=== PATIENT | female | born 1960 | race Caucasian/White ===

== ENCOUNTER 2016-08-08 17:50 | Emergency (ER) | payer OTHER ==
[2016-08-08] MEDS ORDERED: SODIUM CHLORIDE 0.9% 1,000 ML IV STA ×2 (19:46→20:15)
--- NOTE | 2016-08-08 19:54 | ED ---
Weakness HPI - General Chief complaint: Weakness Stated complaint: weakness Time Seen by Provider: 08/08/16 19:41 Source: patient, RN notes reviewed Mode of arrival: EMS Limitations: no limitations - History of Present Illness Initial comments: 55-year-old female presents to the emergency department with a chief complaint of weakness. Patient states about 2 weeks ago she tripped and fell and hit her head. Patient states that the bruising to that area. Patient states that she' s had her head she has felt lightheaded when she stands up. Patient states she' s felt weak. Patient states she is unable to walk due to this increased weakness. Patient has a history of liver failure. Patient states she is just feeling worse she is feeling. Patient denies any fever chills. Patient states she does not know what caused her to fall this was 2 weeks ago. Patient states due to their increased weakness and unable to even ambulate about how she thought that she should be evaluated. Patient states that she is not currently having any other symptoms at this time. Patient denies any recent fever, chills , shortness of breath, chest pain, back pain, abdominal pain, nausea vomiting, numbness or tingling, dysuria or hematuria, constipation or diarrhea, headaches or visual changes, or any other current symptoms. - Related Data Home Medications Medication Instructions Recorded Confirmed Folic Acid 1 mg PO DAILY 08/06/14 08/08/16 Thiamine HCl [Vitamin B-1] 100 mg PO DAILY 08/06/14 08/08/16 Potassium Chloride [Klor-Con 10] 10 meq PO DAILY 07/03/15 08/08/16 Cholecalciferol [Vitamin D3] 4,000 unit PO DAILY 08/08/16 08/08/16 Citalopram Hydrobromide [CeleXA] 40 mg PO DAILY 08/08/16 08/08/16 Furosemide [Lasix] 40 mg PO BID 08/08/16 08/08/16 Lactulose [Cephulac] 20 gm PO TID 08/08/16 08/08/16 Spironolactone [Aldactone] 25 mg PO BID 08/08/16 08/08/16 Previous Rx's Medication Instructions Recorded Levothyroxine Sodium [Synthroid] 88 mcg PO DAILY #30 tab 07/06/15 Allergies Allergy/AdvReac Type Severity Reaction Status Date / Time bupropion HCl Allergy Unknown Verified 08/08/16 18:11 [From Wellbutrin] fluoxetine HCl [From Prozac] Allergy Unknown Verified 08/08/16 18:11 Latex, Natural Rubber Allergy Unknown Verified 08/08/16 18:11 Review of Systems ROS Statement: Those systems with pertinent positive or pertinent negative responses have been documented in the HPI. ROS Other: All systems not noted in ROS Statement are negative. Past Medical History Past Medical History: Heart Failure, Liver Disease, Renal Disease, Thyroid Disorder Additional Past Medical History / Comment(s): alcoholism, liver and kidney failure History of Any Multi-Drug Resistant Organisms: None Reported Past Surgical History: Bladder Surgery, Breast Surgery, Hysterectomy Additional Past Surgical History / Comment(s): lumpectomy, parencetesis January 02 2013 Past Anesthesia/Blood Transfusion Reactions: No Reported Reaction Additional Past Anesthesia/Blood Transfusion Reaction / Comment(s): never had a blood transfusion Past Psychological History: Anxiety, Depression, Panic Disorder Smoking Status: Current every day smoker Past Alcohol Use History: Abuse, Occasional Past Drug Use History: None Reported, Marijuana - Past Family History Mother Family Medical History: COPD Additional Family Medical History / Comment(s): smoker Father Additional Family Medical History / Comment(s): alcoholism General Exam - General Exam Comments Initial Comments: General: The patient is awake and alert, in no distress, and does not appear acutely ill. Jaundice Head: Patient does appear to have a hematoma to the right side of the head that is hardened. Patient has ecchymosis noted around the right eye. Eye: Pupils are equal, round and reactive to light, extra-ocular movements are intact; there is normal conjunctiva bilaterally. Icterus Ears, nose, mouth and throat: There are moist mucous membranes and no oral lesions. Neck: The neck is supple, there is no tenderness. Cardiovascular: There is a regular rate and rhythm. No murmur, rub or gallop is appreciated. Respiratory: Lungs are clear to auscultation, respirations are non-labored, breath sounds are equal. No wheezes, stridor, rales, or rhonchi. Gastrointestinal: Soft, distended, non-tender abdomen without masses or organomegaly noted. There is no rebound or guarding present. No CVA tenderness. Bowel sounds are unremarkable. Back: There is no tenderness to palpation in the midline. There is no obvious deformity. No rashes noted. Musculoskeletal: Normal ROM, no tenderness, There is no pedal edema. There is no calf tenderness or swelling. Sensation intact. Pulses equal bilaterally 2+. Neurological: CN II-XII intact, There are no obvious motor or sensory deficits. Coordination appears grossly intact. Speech is normal. Skin: Skin is warm and dry and no rashes or lesions are noted. Psychiatric: Cooperative, appropriate mood & affect, normal judgment. Limitations: no limitations Course Vital Signs 08/08/16 08/08/16 18:07 19:11 Temperature 97.7 F 101.1 F H Pulse Rate 107 H 90 Respiratory 16 Rate Blood Pressure 120/57 O2 Sat by Pulse 97 Oximetry - Reevaluation(s) Reevaluation #1: 08/08/16 21:17 We are pending results of the patient's urinalysis. Reevaluation #2: 08/08/16 21:20 Gary pending lab work at the transfer time. EKG Findings - EKG Comments: EKG Findings:: normal sinus rhythm 97 bpm, normal axis, no atopy, no S-T depressions or elevations, prolonged QT Medical Decision Making - Medical Decision Making 55-year-old female presents to the emergency department with a chief complaint of weakness. Patient imaging and lab work is reviewed at this time. We are still pending a urine. At this time patient's CAT scan was reviewed that does show concern for a acute traumatic parenchymal hemorrhage the patient was interested about her history of falls. She states last time she fell was one week ago and the bruising and hematoma we noticed today was from 2 weeks ago. The patient is neurologically intact on exam. Alert and oriented 3. Patient has a history of liver failure. Her INR is 1.7 which is appears stable compared to previous labs. To elevated with blood cell count today as well as a fever there is concern for for source at this time we are still pending a urine but we did treat the patient with a gram of Rocephin here in the emergency room prior to transfer. Patient also did receive a fluid bolus and doesn't have an elevation in her kidney function compared to previous lab work otherwise laboratory does appear to be stable compared to previous. At this time we did contact intact; Dr. Don regarding the case and he does accept the transfer. - Lab Data Result diagrams: 08/08/16 20:05 08/08/16 20:05 Lab Results 08/08/16 08/08/16 08/08/16 Range/Units 20:05 20:05 20:05 WBC 12.4 H (3.8-10.6) k/uL RBC 2.64 L (3.80-5.40) m/uL Hgb 8.0 L (11.4-16.0) gm/dL Hct 24.0 L (34.0-46.0) % MCV 90.7 (80.0-100.0) fL MCH 30.3 (25.0-35.0) pg MCHC 33.4 (31.0-37.0) g/dL RDW 19.9 H (11.5-15.5) % Plt Count 119 L (150-450) k/uL Neutrophils % 87 % Lymphocytes % 4 % Monocytes % 7 % Eosinophils % 0 % Basophils % 0 % Neutrophils # 10.8 H (1.3-7.7) k/uL Lymphocytes # 0.5 L (1.0-4.8) k/uL Monocytes # 0.8 (0-1.0) k/uL Eosinophils # 0.0 (0-0.7) k/uL Basophils # 0.0 (0-0.2) k/uL Anisocytosis Slight PT (9.0-12.0) sec INR (<1.1) APTT (22.0-30.0) sec Sodium 125 L (137-145) mmol/L Potassium 3.9 (3.5-5.1) mmol/L Chloride 88 L (98-107) mmol/L Carbon Dioxide 27 (22-30) mmol/L Anion Gap 10 mmol/L BUN 21 H (7-17) mg/dL Creatinine 1.37 H (0.52-1.04) mg/dL Est GFR (MDRD) Af Amer 49 (>60 ml/min/1.73 sqM) Est GFR (MDRD) Non-Af 40 (>60 ml/min/1.73 sqM) Glucose 116 H (74-99) mg/dL Plasma Lactic Acid Bassam (0.7-2.0) mmol/L Calcium 8.9 (8.4-10.2) mg/dL Phosphorus 2.5 (2.5-4.5) mg/dL Magnesium 1.4 L (1.6-2.3) mg/dL Total Bilirubin 5.3 H (0.2-1.3) mg/dL AST 61 H (14-36) U/L ALT 39 (9-52) U/L Alkaline Phosphatase 208 H (38-126) U/L Ammonia (<30) umol/L Total Creatine Kinase 48 (30-135) U/L CK-MB (CK-2) 0.4 (0.0-2.4) ng/mL CK-MB (CK-2) Rel Index 0.8 Troponin I <0.012 (0.000-0.034) ng/mL Total Protein 7.1 (6.3-8.2) g/dL Albumin 3.1 L (3.5-5.0) g/dL Influenza Type A RNA (Not Detectd) Influenza Type B (PCR) (Not Detectd) 08/08/16 08/08/16 08/08/16 Range/Units 20:05 20:05 20:33 WBC (3.8-10.6) k/uL RBC (3.80-5.40) m/uL Hgb (11.4-16.0) gm/dL Hct (34.0-46.0) % MCV (80.0-100.0) fL MCH (25.0-35.0) pg MCHC (31.0-37.0) g/dL RDW (11.5-15.5) % Plt Count (150-450) k/uL Neutrophils % % Lymphocytes % % Monocytes % % Eosinophils % % Basophils % % Neutrophils # (1.3-7.7) k/uL Lymphocytes # (1.0-4.8) k/uL Monocytes # (0-1.0) k/uL Eosinophils # (0-0.7) k/uL Basophils # (0-0.2) k/uL Anisocytosis PT 16.2 H (9.0-12.0) sec INR 1.7 (<1.1) APTT 29.1 (22.0-30.0) sec Sodium (137-145) mmol/L Potassium (3.5-5.1) mmol/L Chloride (98-107) mmol/L Carbon Dioxide (22-30) mmol/L Anion Gap mmol/L BUN (7-17) mg/dL Creatinine (0.52-1.04) mg/dL Est GFR (MDRD) Af Amer (>60 ml/min/1.73 sqM) Est GFR (MDRD) Non-Af (>60 ml/min/1.73 sqM) Glucose (74-99) mg/dL Plasma Lactic Acid Bassam 1.5 (0.7-2.0) mmol/L Calcium (8.4-10.2) mg/dL Phosphorus (2.5-4.5) mg/dL Magnesium (1.6-2.3) mg/dL Total Bilirubin (0.2-1.3) mg/dL AST (14-36) U/L ALT (9-52) U/L Alkaline Phosphatase (38-126) U/L Ammonia 18 (<30) umol/L Total Creatine Kinase (30-135) U/L CK-MB (CK-2) (0.0-2.4) ng/mL CK-MB (CK-2) Rel Index Troponin I (0.000-0.034) ng/mL Total Protein (6.3-8.2) g/dL Albumin (3.5-5.0) g/dL Influenza Type A RNA Not Detected (Not Detectd) Influenza Type B (PCR) Not Detected (Not Detectd) Disposition Clinical Impression: Fall, Ecchymosis of right eye, Forehead contusion, Parenchymal hemorrhage, Acute kidney injury, Fever, Elevated INR, Liver failure, Jaundice, Chronic anemia Disposition: OTHER INSTITUTION NOT DEFINED Time of Disposition: 21:17 - Out of Hospital Transfer - Req. Specs Out of Hospital Transfer - Requested Specifics: Other Emergency Center ([facility])
[2016-08-08 20:18] LABS: Anisocytosis Slight; Basophils % (A) 0 %; CH 30.1; CHCM 33.4; Eosinophils % (A) 0 %; HDW 2.47; Luc # (Auto) 0.26; Luc % (Auto) 2; Lymphocytes # (A) 0.5 k/uL (1.0-4.8); Lymphocytes % (A) 4 %; MCH 30.3 pg (25.0-35.0); MCHC 33.4 g/dL (31.0-37.0); MCV 90.7 fL (80.0-100.0); Mean Platelet Volume 8.5; Monocytes # (A) 0.8 k/uL (0-1.0); Monocytes % (A) 7 %; Neutrophils # (A) 10.8 k/uL (1.3-7.7); Neutrophils % (A) 87 %; RBC 2.64 m/uL (3.80-5.40); RDW 19.9 % (11.5-15.5); WBC 12.4 k/uL (3.8-10.6); WBC (Perox) 11.83
[2016-08-08 20:24] LABS: INR 1.7 (<1.1); Partial Thromboplastin Time 29.1 sec (22.0-30.0); Prothrombin Time 16.2 sec (9.0-12.0)
[2016-08-08 20:28] LABS: Calcium 8.9 mg/dL (8.4-10.2); Magnesium 1.4 mg/dL (1.6-2.3); Phosphorous 2.5 mg/dL (2.5-4.5); Potassium 3.9 mmol/L (3.5-5.1); Total Bilirubin 5.3 mg/dL (0.2-1.3); Total Protein 7.1 g/dL (6.3-8.2)
[2016-08-08 20:30] LABS: Creatine Kinase 48 U/L (30-135)
[2016-08-08] MEDS ORDERED: SODIUM CHLORIDE 0.9% 500 ML IV SCH (20:30)
--- NOTE | 2016-08-08 20:41 | CT ---
EXAMINATION TYPE: CT brain wo con DATE OF EXAM: 08/08/2016 8:28 PM COMPARISON: 01/02/2016 HISTORY: Weakness. Bruising involving the left orbital area. CT DLP: 956.1 mGycm Automated exposure control for dose reduction was used. FINDINGS: There is cerebral cortical atrophy. There is a 2 cm area of slight increased attenuation in the right temporal lobe with some adjacent cortical hypodensity. There is no midline shift. The calvarium is i ntact. There is a 1 cm sebaceous cyst over the right frontal bone. IMPRESSION: There is combined increased and decreased attenuation in the right temporal lobe that is new compared to old CT scan and could relate to a hemorrhagic acute infarct. No fracture seen. I would also consi marilyn acute traumatic parenchymal hemorrhage. No mass effect.
--- NOTE | 2016-08-08 20:43 | XR ---
EXAMINATION TYPE: XR chest 2V DATE OF EXAM: 08/08/2016 8:31 PM COMPARISON: 01/02/2016 HISTORY: Weakness TECHNIQUE: Frontal and lateral views of the chest are obtained. FINDINGS: Heart and mediastinum are normal. Lungs are clear. Diaphragm is normal. Bony thorax is int act. IMPRESSION: Normal chest. No change.
[2016-08-08 20:44] LABS: Creatine Kinase MB 0.4 ng/mL (0.0-2.4); Troponin I <0.012 ng/mL (0.000-0.034)
[2016-08-08 21:15] VITALS: RESP 20
[2016-08-08] MEDS ORDERED: ACETAMINOPHEN TAB 500 MG TAB PO STA (21:25)
[2016-08-08 21:41] LABS: Appearance,Urine Cloudy (Clear); Bacteria,Urine Many /hpf; Bilirubin,Urine 1+ (Negative); Glucose,Urine (UA) Negative (Negative); Ketones,Urine Negative (Negative); Leukocyte Esterase,Urine Large (Negative); Mucus,Urine Rare /hpf; Nitrite,Urine Negative (Negative); PH, Urine 5.5 (5.0-8.0); Particle Count 25034; Protein,Urine 1+ (Negative); RBC,Urine 6 /hpf (0-5); Squamous Epithelial Cell,Urine 4 /hpf (0-4); UA Billing (MACRO vs. MICRO) MICRO; WBC,Urine 140 /hpf (0-5)
[2016-08-08 21:44] VITALS: BP 98/50; PULSE 81; TEMP 100
== END 2016-08-08 21:50 | disposition other institution (70) ==
LOC: EC 17:50
DX: S06.360A Traumatic hemorrhage of cerebrum, unspecified, without loss of consciousness, initial encounter (principal); S05.11XA Contusion of eyeball and orbital tissues, right eye, initial encounter; S00.83XA Contusion of other part of head, initial encounter; W01.10XS Fall on same level from slipping, tripping and stumbling with subsequent striking against unspecified object, sequela; N17.9 Acute kidney failure, unspecified; R50.9 Fever, unspecified; D64.9 Anemia, unspecified; K72.90 Hepatic failure, unspecified without coma; Z79.899 Other long term (current) drug therapy; Z88.8 Allergy status to other drugs, medicaments and biological substances; Z91.040 Latex allergy status; E07.9 Disorder of thyroid, unspecified; F32.9 Major depressive disorder, single episode, unspecified; I50.9 Heart failure, unspecified; F17.210 Nicotine dependence, cigarettes, uncomplicated
CPT/HCPCS: 99284; 96365; 96361; 36415; 93005; 80053; 82533; 82140; 82550; 82553; 83605; 83735; 84100; 84484; 85025; 85610; 85730; 81001; 87040; 87086; 87077; 87186; 87502; 71020; 70450; J0696

== ENCOUNTER 2016-11-01 10:00 | Inpatient (IN) | payer OTHER ==
--- NOTE | 2016-11-01 10:35 | ED ---
General Adult HPI - General Chief complaint: Weakness Stated complaint: Weakness Time Seen by Provider: 11/01/16 10:05 Source: patient, EMS, RN notes reviewed Mode of arrival: EMS Limitations: no limitations - History of Present Illness Initial comments: This is a 56-year-old female who presents to the emergency department with a past medical history significant for alcoholism and she continues to drink, liver failure, and renal failure. Patient states she has been drinking a lot more heavily ever since her mother in June. Patient states she has been becoming weaker and weaker to the point where she cannot get out of bed so she called the ambulance today. Patient denies any fever or chills. Patient denies any headache patient denies numbness weakness. Patient denies any difficulty breathing. Patient denies abdominal pain. Patient states she's had no chest pain palpitations or difficulty breathing. - Related Data Home Medications Medication Instructions Recorded Confirmed Folic Acid 1 mg PO DAILY 08/06/14 11/01/16 Thiamine HCl [Vitamin B-1] 100 mg PO DAILY 08/06/14 11/01/16 Potassium Chloride [Klor-Con 10] 10 meq PO DAILY 07/03/15 11/01/16 Cholecalciferol [Vitamin D3] 4,000 unit PO DAILY 08/08/16 11/01/16 Citalopram Hydrobromide [CeleXA] 40 mg PO DAILY 08/08/16 11/01/16 Furosemide [Lasix] 40 mg PO BID 08/08/16 11/01/16 Lactulose [Cephulac] 20 gm PO TID 08/08/16 11/01/16 Spironolactone [Aldactone] 25 mg PO BID 08/08/16 11/01/16 Previous Rx's Medication Instructions Recorded Levothyroxine Sodium [Synthroid] 88 mcg PO DAILY #30 tab 07/06/15 Allergies Allergy/AdvReac Type Severity Reaction Status Date / Time bupropion HCl Allergy Unknown Verified 11/01/16 10:56 [From Wellbutrin] fluoxetine HCl [From Prozac] Allergy Unknown Verified 11/01/16 10:56 Latex, Natural Rubber Allergy Unknown Verified 11/01/16 10:56 Review of Systems ROS Statement: Those systems with pertinent positive or pertinent negative responses have been documented in the HPI. ROS Other: All systems not noted in ROS Statement are negative. Past Medical History Past Medical History: Heart Failure, Liver Disease, Renal Disease, Thyroid Disorder Additional Past Medical History / Comment(s): alcoholism, liver and kidney failure History of Any Multi-Drug Resistant Organisms: None Reported Past Surgical History: Bladder Surgery, Breast Surgery, Hysterectomy Additional Past Surgical History / Comment(s): lumpectomy, parencetesis January 02 2013 Past Anesthesia/Blood Transfusion Reactions: No Reported Reaction Additional Past Anesthesia/Blood Transfusion Reaction / Comment(s): never had a blood transfusion Past Psychological History: Anxiety, Depression, Panic Disorder Smoking Status: Current every day smoker Past Alcohol Use History: Abuse, Occasional Past Drug Use History: None Reported - Past Family History Mother Family Medical History: COPD Additional Family Medical History / Comment(s): smoker Father Additional Family Medical History / Comment(s): alcoholism General Exam - General Exam Comments Initial Comments: GENERAL: Patient is well-developed and well-nourished. Patient is nontoxic and well- hydrated and is in no acute distress. ENT: Neck is soft and supple. No significant lymphadenopathy is noted. Oropharynx is clear. Moist mucous membranes. Neck has full range of motion without eliciting any pain. EYES: Patient has sclera icterus. Extraocular movements were intact and pupils were equal round and reactive to light. Eyelids were unremarkable. PULMONARY: Unlabored respirations. Good breath sounds bilaterally. No audible rales rhonchi or wheezing was noted. CARDIOVASCULAR: There is a regular rate and rhythm without any murmurs gallops or rubs. Femoral pulses are equal bilaterally ABDOMEN: Patient's abdomen is distended slightly SKIN: Patient's skin is jaundice NEUROLOGIC: Patient is alert and oriented x3. Cranial nerves II through XII are grossly intact. Motor and sensory are also intact. Normal speech, volume and content. Symmetrical smile. MUSCULOSKELETAL: Normal extremities with adequate strength and full range of motion. No lower extremity swelling or edema. No calf tenderness. LYMPHATICS: No significant lymphadenopathy is noted PSYCHIATRIC: Patient appears depressed and talking about her mother immediately starts crying she in June. Limitations: no limitations Course Vital Signs 11/01/16 11/01/16 11/01/16 10:04 10:24 11:59 Temperature 97.8 F Pulse Rate 90 85 84 Respiratory 18 16 16 Rate Blood Pressure 91/50 88/51 O2 Sat by Pulse 100 100 100 Oximetry 11/01/16 11/01/16 13:10 13:20 Temperature 98.1 F 98.3 F Pulse Rate 82 86 Respiratory 16 16 Rate Blood Pressure 95/55 93/50 O2 Sat by Pulse 100 100 Oximetry Medical Decision Making - Medical Decision Making EKG shows normal sinus rhythm at 85 bpm KS interval is on a 36 QRS is 94 Q-T intervals 366 QTC is 435 per patient's EKG shows no ST segment elevation or depression or T-wave abdomen is noted. Chest x-ray is normal. I spoke with Dr. Díaz admitted the patient I wrote admitting orders. I counseled GI as well as critical care. I ordered 1 unit of packed red blood cells for the person. I also ordered replacement potassium for the patient. I also started the patient on antibiotic for urinary tract infection. - Lab Data Result diagrams: 11/01/16 10:22 11/01/16 10:22 Lab Results 11/01/16 11/01/16 11/01/16 Range/Units 10:22 10:22 10:22 WBC 7.5 (3.8-10.6) k/uL RBC 1.63 L (3.80-5.40) m/uL Hgb 6.4 L* (11.4-16.0) gm/dL Hct 18.8 L* (34.0-46.0) % MCV 115.2 H (80.0-100.0) fL MCH 39.4 H (25.0-35.0) pg MCHC 34.2 (31.0-37.0) g/dL RDW 18.6 H (11.5-15.5) % Plt Count 117 L (150-450) k/uL Neutrophils % 71 % Lymphocytes % 17 % Monocytes % 5 % Eosinophils % 3 % Basophils % 1 % Neutrophils # 5.3 (1.3-7.7) k/uL Lymphocytes # 1.3 (1.0-4.8) k/uL Monocytes # 0.4 (0-1.0) k/uL Eosinophils # 0.3 (0-0.7) k/uL Basophils # 0.0 (0-0.2) k/uL Anisocytosis Slight Macrocytosis Marked PT (9.0-12.0) sec INR (<1.1) APTT (22.0-30.0) sec Sodium 129 L (137-145) mmol/L Potassium 2.7 L* (3.5-5.1) mmol/L Chloride 91 L (98-107) mmol/L Carbon Dioxide 22 (22-30) mmol/L Anion Gap 16 mmol/L BUN 19 H (7-17) mg/dL Creatinine 1.86 H (0.52-1.04) mg/dL Est GFR (MDRD) Af Amer 34 (>60 ml/min/1.73 sqM) Est GFR (MDRD) Non-Af 28 (>60 ml/min/1.73 sqM) Glucose 83 (74-99) mg/dL Calcium 8.1 L (8.4-10.2) mg/dL Magnesium 1.6 (1.6-2.3) mg/dL Total Bilirubin 14.8 H (0.2-1.3) mg/dL AST 79 H (14-36) U/L ALT 22 (9-52) U/L Alkaline Phosphatase 310 H (38-126) U/L Total Creatine Kinase 23 L (30-135) U/L CK-MB (CK-2) 0.4 (0.0-2.4) ng/mL CK-MB (CK-2) Rel Index 1.7 Troponin I <0.012 (0.000-0.034) ng/mL Total Protein 7.4 (6.3-8.2) g/dL Albumin 2.8 L (3.5-5.0) g/dL Urine Color Urine Appearance (Clear) Urine pH (5.0-8.0) Ur Specific [place] (1.001-1.035) Urine Protein (Negative) Urine Glucose (UA) (Negative) Urine Ketones (Negative) Urine Blood (Negative) Urine Nitrite (Negative) Urine Bilirubin (Negative) Urine Urobilinogen (<2.0) mg/dL Ur Leukocyte Esterase (Negative) Urine RBC (0-5) /hpf Urine WBC (0-5) /hpf Urine WBC Clumps (None) /hpf Amorphous Sediment (None) /hpf Urine Bacteria (None) /hpf Urine Mucus (None) /hpf Serum Alcohol mg/dL Blood Type Blood Type Recheck Antibody Screen Crossmatch Spec Expiration Date 11/01/16 11/01/16 11/01/16 Range/Units 10:22 10:22 10:22 WBC (3.8-10.6) k/uL RBC (3.80-5.40) m/uL Hgb (11.4-16.0) gm/dL Hct (34.0-46.0) % MCV (80.0-100.0) fL MCH (25.0-35.0) pg MCHC (31.0-37.0) g/dL RDW (11.5-15.5) % Plt Count (150-450) k/uL Neutrophils % % Lymphocytes % % Monocytes % % Eosinophils % % Basophils % % Neutrophils # (1.3-7.7) k/uL Lymphocytes # (1.0-4.8) k/uL Monocytes # (0-1.0) k/uL Eosinophils # (0-0.7) k/uL Basophils # (0-0.2) k/uL Anisocytosis Macrocytosis PT 19.5 H (9.0-12.0) sec INR 2.0 (<1.1) APTT 37.1 H (22.0-30.0) sec Sodium (137-145) mmol/L Potassium (3.5-5.1) mmol/L Chloride (98-107) mmol/L Carbon Dioxide (22-30) mmol/L Anion Gap mmol/L BUN (7-17) mg/dL Creatinine (0.52-1.04) mg/dL Est GFR (MDRD) Af Amer (>60 ml/min/1.73 sqM) Est GFR (MDRD) Non-Af (>60 ml/min/1.73 sqM) Glucose (74-99) mg/dL Calcium (8.4-10.2) mg/dL Magnesium (1.6-2.3) mg/dL Total Bilirubin (0.2-1.3) mg/dL AST (14-36) U/L ALT (9-52) U/L Alkaline Phosphatase (38-126) U/L Total Creatine Kinase (30-135) U/L CK-MB (CK-2) (0.0-2.4) ng/mL CK-MB (CK-2) Rel Index Troponin I (0.000-0.034) ng/mL Total Protein (6.3-8.2) g/dL Albumin (3.5-5.0) g/dL Urine Color Urine Appearance (Clear) Urine pH (5.0-8.0) Ur Specific [place] (1.001-1.035) Urine Protein (Negative) Urine Glucose (UA) (Negative) Urine Ketones (Negative) Urine Blood (Negative) Urine Nitrite (Negative) Urine Bilirubin (Negative) Urine Urobilinogen (<2.0) mg/dL Ur Leukocyte Esterase (Negative) Urine RBC (0-5) /hpf Urine WBC (0-5) /hpf Urine WBC Clumps (None) /hpf Amorphous Sediment (None) /hpf Urine Bacteria (None) /hpf Urine Mucus (None) /hpf Serum Alcohol 114 mg/dL Blood Type O Positive Blood Type Recheck No Antibody Screen NEGATIVE Crossmatch See Detail Spec Expiration Date 11/04/2016232111/01/16 Range/Units 11:55 WBC (3.8-10.6) k/uL RBC (3.80-5.40) m/uL Hgb (11.4-16.0) gm/dL Hct (34.0-46.0) % MCV (80.0-100.0) fL MCH (25.0-35.0) pg MCHC (31.0-37.0) g/dL RDW (11.5-15.5) % Plt Count (150-450) k/uL Neutrophils % % Lymphocytes % % Monocytes % % Eosinophils % % Basophils % % Neutrophils # (1.3-7.7) k/uL Lymphocytes # (1.0-4.8) k/uL Monocytes # (0-1.0) k/uL Eosinophils # (0-0.7) k/uL Basophils # (0-0.2) k/uL Anisocytosis Macrocytosis PT (9.0-12.0) sec INR (<1.1) APTT (22.0-30.0) sec Sodium (137-145) mmol/L Potassium (3.5-5.1) mmol/L Chloride (98-107) mmol/L Carbon Dioxide (22-30) mmol/L Anion Gap mmol/L BUN (7-17) mg/dL Creatinine (0.52-1.04) mg/dL Est GFR (MDRD) Af Amer (>60 ml/min/1.73 sqM) Est GFR (MDRD) Non-Af (>60 ml/min/1.73 sqM) Glucose (74-99) mg/dL Calcium (8.4-10.2) mg/dL Magnesium (1.6-2.3) mg/dL Total Bilirubin (0.2-1.3) mg/dL AST (14-36) U/L ALT (9-52) U/L Alkaline Phosphatase (38-126) U/L Total Creatine Kinase (30-135) U/L CK-MB (CK-2) (0.0-2.4) ng/mL CK-MB (CK-2) Rel Index Troponin I (0.000-0.034) ng/mL Total Protein (6.3-8.2) g/dL Albumin (3.5-5.0) g/dL Urine Color Dark Brown Urine Appearance Turbid H (Clear) Urine pH 5.5 (5.0-8.0) Ur Specific [place] 1.012 (1.001-1.035) Urine Protein 1+ H (Negative) Urine Glucose (UA) Negative (Negative) Urine Ketones Negative (Negative) Urine Blood Large H (Negative) Urine Nitrite Negative (Negative) Urine Bilirubin 3+ H (Negative) Urine Urobilinogen >12.0 (<2.0) mg/dL Ur Leukocyte Esterase Large H (Negative) Urine RBC 157 H (0-5) /hpf Urine WBC 72 H (0-5) /hpf Urine WBC Clumps Few H (None) /hpf Amorphous Sediment Few H (None) /hpf Urine Bacteria Moderate H (None) /hpf Urine Mucus Rare H (None) /hpf Serum Alcohol mg/dL Blood Type Blood Type Recheck Antibody Screen Crossmatch Spec Expiration Date Critical Care Time Critical Care Time: Yes Total Critical Care Time: 35 Disposition Clinical Impression: Hypokalemia, Anemia, Hyperbilirubinemia, Coagulopathy, Alcohol intoxication, Urinary tract infection Disposition: ADMITTED IP TO THIS [facility] Time of Disposition: 12:29
[2016-11-01 10:47] LABS: Anisocytosis Slight; Basophils % (A) 1 %; CH 38.3; CHCM 33.5; Eosinophils # (A) 0.3 k/uL (0-0.7); Eosinophils % (A) 3 %; HDW 2.67; Luc # (Auto) 0.21; Luc % (Auto) 3; Lymphocytes # (A) 1.3 k/uL (1.0-4.8); Lymphocytes % (A) 17 %; MCH 39.4 pg (25.0-35.0); MCHC 34.2 g/dL (31.0-37.0); MCV 115.2 fL (80.0-100.0); Macrocytosis Marked; Mean Platelet Volume 7.4; Monocytes # (A) 0.4 k/uL (0-1.0); Monocytes % (A) 5 %; Neutrophils # (A) 5.3 k/uL (1.3-7.7); Neutrophils % (A) 71 %; RBC 1.63 m/uL (3.80-5.40); RDW 18.6 % (11.5-15.5); WBC 7.5 k/uL (3.8-10.6); WBC (Perox) 7.34
[2016-11-01 10:50] LABS: HGB 6.4 gm/dL (11.4-16.0)
--- NOTE | 2016-11-01 10:51 | XR ---
EXAMINATION TYPE: XR chest 2V DATE OF EXAM: 11/01/2016 10:46 AM COMPARISON: Prior chest x-ray 08 August 2016 HISTORY: Weakness, jaundice TECHNIQUE: Frontal and lateral views of the chest are obtained. FINDINGS: There is no focal air space opacity, pleural effusion, or pneumothorax seen. The cardiac silhouette size is within normal limits. There are overlying cardiac leads. The osseous structures a re intact. IMPRESSION: No acute cardiopulmonary process.
[2016-11-01 10:52] LABS: Calcium 8.1 mg/dL (8.4-10.2); HCT 18.8 % (34.0-46.0); Magnesium 1.6 mg/dL (1.6-2.3); Total Bilirubin 14.8 mg/dL (0.2-1.3); Total Protein 7.4 g/dL (6.3-8.2)
[2016-11-01 10:54] LABS: Partial Thromboplastin Time 37.1 sec (22.0-30.0)
[2016-11-01 10:57] LABS: Potassium 2.7 mmol/L (3.5-5.1)
[2016-11-01 11:01] LABS: Creatine Kinase 23 U/L (30-135); Prothrombin Time 19.5 sec (9.0-12.0)
[2016-11-01 11:14] LABS: Creatine Kinase MB 0.4 ng/mL (0.0-2.4); Troponin I <0.012 ng/mL (0.000-0.034)
[2016-11-01 12:19] LABS: Amorphous Sediment,Urine Few /hpf; Appearance,Urine Turbid (Clear); Bacteria,Urine Moderate /hpf; Bilirubin,Urine 3+ (Negative); Glucose,Urine (UA) Negative (Negative); Ketones,Urine Negative (Negative); Leukocyte Esterase,Urine Large (Negative); Mucus,Urine Rare /hpf; Nitrite,Urine Negative (Negative); PH, Urine 5.5 (5.0-8.0); Particle Count 255158; Protein,Urine 1+ (Negative); RBC,Urine 157 /hpf (0-5); Specific Gravity,Urine 1.012 (1.001-1.035); UA Billing (MACRO vs. MICRO) MICRO; Urobilinogen,Urine >12.0 mg/dL (<2.0); WBC,Urine 72 /hpf (0-5)
[2016-11-01] MEDS ORDERED: NALOXONE 0.4 MG/ML 1 ML VIAL IV PRN (12:31)
[2016-11-01] MEDS ORDERED: 0.9% NACL WITH KCL 20 MEQ/L 1,000 ML IV ONE (12:34)
[2016-11-01 16:49] LABS: Glucose,Whole Blood 88 mg/dL (75-99)
[2016-11-01] MEDS ORDERED: SODIUM CHLORIDE 0.9% 2,000 ML IV ONE (18:09)
[2016-11-01 18:35] LABS: Anisocytosis Moderate; CH 34.5; HCT 22.9 % (34.0-46.0); HDW 2.63; HGB 7.4 gm/dL (11.4-16.0); Hypochromasia Slight; MCH 36.1 pg (25.0-35.0); MCHC 32.1 g/dL (31.0-37.0); MCV 112.4 fL (80.0-100.0); Macrocytosis Marked; Mean Platelet Volume 7.3; RBC 2.04 m/uL (3.80-5.40); WBC 5.9 k/uL (3.8-10.6)
[2016-11-01] MEDS: LACTATED RINGERS 2,000 ML IV SCH ×2 (18:36→20:00)
[2016-11-01] MEDS ORDERED: Potassium Replacement Protocol 1 EACH MISC MISCELLANE PRN (18:57)
[2016-11-01] MEDS ORDERED: Magnesium Replacement Protocol 1 EACH MISC MISCELLANE PRN (19:51)
[2016-11-01] MEDS ORDERED: POTASSIUM CHLORIDE 10 MEQ, LIDOCAINE 2% INJ 10 MG in SODIUM CHLORIDE 0.9% 100 ML IV SCH (20:00)
[2016-11-01] MEDS: LACTATED RINGERS 1,000 ML IV SCH ×2 (21:13→23:47)
[2016-11-01] MEDS: MAGNESIUM SULFATE-D5W PMX 1 GM in DEXTROSE/WATER 1 100ML.BAG IVPB SCH ×2 (22:10→23:47)
[2016-11-01] MEDS: NOREPINEPHRIN 4 MG-0.9% NS PMX 4 MG/250 ML ML IV SCH (22:33)
--- NOTE | 2016-11-01 23:25 | CONS ---
DATE OF CONSULTATION: 11/01/2016 REASON FOR CONSULTATION: Alcoholic liver disease and cirrhosis and anemia. HISTORY OF PRESENT ILLNESS: The patient is a 56-year-old white female with history of heavy alcohol abuse known to me from office visits 2 years ago. She was admitted to the hospital because of tiredness, weakness, not feeling well and yellowish discoloration of skin for the last few days duration. She also complains of abdominal distention. The patient has been drinking alcohol more heavily recently after her mother in June. She has history of heavy alcohol abuse for more than 20 years. In the past was admitted to the hospital with ascites, for which she underwent large volume paracentesis and has been on Lasix on an outpatient basis. However, she states lately she has been not taking any medications and has been drinking heavily. Presently she complains of some abdominal discomfort, but no nausea or vomiting. She thought she had some black stool for the last 2 weeks' duration. Denies any hematemesis. She denies any abdominal pain, but has abdominal distention. Her past medical history significant for alcoholic liver disease with cirrhosis and ascites in the past, history of heavy alcohol abuse. PAST SURGICAL HISTORY: Bladder surgery, breast surgery, hysterectomy, lumpectomy. MEDICATIONS AT HOME: Include: 1. Folic acid. 2. Multivitamin. 3. Potassium chloride. 4. Celexa. 5. Lasix. 6. Lactulose. 7. Aldactone. SOCIAL HISTORY: Chronic smoker, chronic alcohol use. FAMILY HISTORY: Mother had chronic obstructive pulmonary disease. REVIEW OF SYSTEMS: CARDIOPULMONARY: She denies any chest pain or shortness of breath. GENITOURINARY: No dysuria or hematuria. MUSCULOSKELETAL: Unremarkable. SKIN: Unremarkable. ENDOCRINE: Unremarkable. PSYCHIATRIC: Unremarkable. NEUROLOGY: Unremarkable. ENT: Vision unremarkable. CONSTITUTIONAL: No recent weight loss. No fevers, chills or night sweats. On physical examination she appears comfortable in no apparent distress. Vitals as are stable. Blood pressure 100/50, pulse 89, temperature 98. HEENT: Unremarkable. Conjunctivae pink. Sclerae deeply icteric. Oral cavity, no lesions. NECK: No JVD or lymph node enlargement. Chest was clear to auscultation. HEART: Regular rate and rhythm. Abdomen distended. Large amount of free fluid noted. EXTREMITIES: No pedal edema. NEUROLOGICAL: Alert and oriented x3. No focal deficits. LABS: WBC 7.5. Hemoglobin 6.4, platelets 117. PT 19.5. INR 2, sodium 129, potassium 2.7, chloride 91, CO2 22, BUN 19, creatinine 1.86, bilirubin 14.8, AST 79, ALT 22, alk phos 310. IMPRESSION: 1. Acute alcoholic hepatitis with elevated serum transaminases, AST more than ALT and T-bili up to 4.9 in this lady who has heavy alcohol use for several years' duration. 2. Alcoholic cirrhosis of the liver with portal hypertension and ascites. 3. Anemia with intermittent black, tarry stools, possible upper gastrointestinal source of bleeding. 4. Elevated BUN and creatinine consistent with mild renal insufficiency to rule out hepatorenal syndrome. 5. Coagulopathy secondary to advanced liver disease, and cirrhosis of the liver. RECOMMENDATIONS: 1. Continue with symptomatic and supportive care. 2. Agree with blood transfusion. 3. Gentle hydration and will hold off on the diuretics at the present time because of elevated creatinine. 4. She was already started on broad-spectrum antibiotics and we can continue the same. 5. A large volume paracentesis once her INR is less than 1.5. 6. Continue lactulose for history of hepatic encephalopathy and will follow the patient closely during her hospital stay. Thank you for this consultation.
[2016-11-02 00:20] LABS: Glucose,Whole Blood 106 mg/dL (75-99)
[2016-11-02 00:39] LABS: Anisocytosis Moderate; CHCM 34.3; HCT 22.6 % (34.0-46.0); HDW 2.97; HGB 7.7 gm/dL (11.4-16.0); MCH 36.3 pg (25.0-35.0); MCHC 34.2 g/dL (31.0-37.0); Macrocytosis Marked; Mean Platelet Volume 7.6; RBC 2.13 m/uL (3.80-5.40); RDW 23.1 % (11.5-15.5); WBC 7.6 k/uL (3.8-10.6)
[2016-11-02 01:01] LABS: MCV 106.1 fL (80.0-100.0)
[2016-11-02] MEDS: 0.9% NACL WITH KCL 20 MEQ/L 1,000 ML IV SCH ×2 (01:10→12:55)
[2016-11-02] MEDS ORDERED: SODIUM CHLORIDE 0.9% 1,000 ML IV ONE (02:37)
[2016-11-02 03:47] LABS: Anisocytosis Moderate; Basophils # (A) 0.1 k/uL (0-0.2); Basophils % (A) 0 %; CH 36.1; CHCM 34.4; Eosinophils # (A) 0.2 k/uL (0-0.7); Eosinophils % (A) 2 %; HCT 23.2 % (34.0-46.0); HDW 3.04; Luc # (Auto) 0.22; Luc % (Auto) 2; Lymphocytes # (A) 1.2 k/uL (1.0-4.8); Lymphocytes % (A) 11 %; MCH 36.6 pg (25.0-35.0); MCHC 34.5 g/dL (31.0-37.0); MCV 106.3 fL (80.0-100.0); Macrocytosis Marked; Mean Platelet Volume 7.3; Monocytes # (A) 0.7 k/uL (0-1.0); Monocytes % (A) 7 %; Neutrophils # (A) 8.6 k/uL (1.3-7.7); Neutrophils % (A) 79 %; RBC 2.18 m/uL (3.80-5.40); RDW 23.1 % (11.5-15.5); WBC (Perox) 10.62
[2016-11-02 04:10] LABS: Calcium 7.7 mg/dL (8.4-10.2); Phosphorous 2.3 mg/dL (2.5-4.5); Potassium 3.6 mmol/L (3.5-5.1)
[2016-11-02] MEDS ORDERED: SODIUM PHOSPHATE 10 MMOL in SODIUM CHLORIDE 0.9% 250 ML IVPB ONE (05:31)
[2016-11-02] MEDS ORDERED: Phosphorus Replacement Protoco 1 EACH MISC MISCELLANE PRN (05:31)
[2016-11-02] MEDS: NOREPINEPHRIN 4 MG-0.9% NS PMX 4 MG/250 ML ML IV SCH ×3 (08:09→20:49)
[2016-11-02] MEDS ORDERED: NICOTINE 21MG/24HR PATCH TRANSDERM SCH (09:00)
[2016-11-02] MEDS: NICOTINE 14MG/24HR PATCH TRANSDERM SCH (09:16)
[2016-11-02] MEDS: PANTOPRAZOLE 40 MG/10 ML VIAL IV SCH (09:16)
[2016-11-02 09:26] LABS: Glucose,Whole Blood 124 mg/dL (75-99)
--- NOTE | 2016-11-02 09:53 | P.CNPUL ---
History of Present Illness Consult date: 11/02/16 Reason for consult: other Chief complaint: Weakness and liver failure History of present illness: This is a 56-year-old female who [facility] She has a history of significant alcohol abuse and alcoholic liver disease. The patient has a history of chronic ascites and has had paracentesis abdominis in the past. She drinks about one half a pint of vodka a day and a bit can appear every day. She's been doing that for about 20+ years. She's been drinking more heavily recently and she came into the hospital with complaints of weakness. Had some mental status changes and also some hypotension. The patient was to minute to the ICU as I spoke to the ER doctor. She also has some abdominal distention from ascites and some difficulty breathing. No chest pain. Her home medications included folic acid thiamine potassium chloride vitamin D3 Celexa Lasix lactulose and Aldactone. Was also previously on Synthroid. ALLERGIES include Wellbutrin Prozac and latex. Review of Systems ROS unobtainable: due to mental status Past Medical History Past Medical History: Heart Failure, Liver Disease, Renal Disease, Thyroid Disorder Additional Past Medical History / Comment(s): alcoholism, liver and kidney failure History of Any Multi-Drug Resistant Organisms: None Reported Past Surgical History: Bladder Surgery, Breast Surgery, Hysterectomy Additional Past Surgical History / Comment(s): lumpectomy, parencetesis January 02 2013 Past Anesthesia/Blood Transfusion Reactions: No Reported Reaction Additional Past Anesthesia/Blood Transfusion Reaction / Comment(s): never had a blood transfusion Past Psychological History: Anxiety, Depression, Panic Disorder Additional Psychological History / Comment(s): Pt resides with friend. She uses a walker to ambulate. She does not drive, she uses her insurance company for rides. Smoking Status: Current every day smoker Past Alcohol Use History: Abuse, Occasional Additional Past Alcohol Use History / Comment(s): Pt states she started smoking in 2003. She states she is an alcoholic and last drank yesterday. Past Drug Use History: None Reported Additional Drug Use History / Comment(s): Pt on occasion will use marijuana but not very often. - Past Family History Mother Family Medical History: COPD Additional Family Medical History / Comment(s): smoker Father Additional Family Medical History / Comment(s): alcoholism Medications and Allergies Home Medications Medication Instructions Recorded Confirmed Type Folic Acid 1 mg PO DAILY 08/06/14 11/01/16 History Thiamine HCl [Vitamin B-1] 100 mg PO DAILY 08/06/14 11/01/16 History Potassium Chloride [Klor-Con 10] 10 meq PO DAILY 07/03/15 11/01/16 History Cholecalciferol [Vitamin D3] 4,000 unit PO DAILY 08/08/16 11/01/16 History Citalopram Hydrobromide [CeleXA] 40 mg PO DAILY 08/08/16 11/01/16 History Furosemide [Lasix] 40 mg PO BID 08/08/16 11/01/16 History Lactulose [Cephulac] 20 gm PO TID 08/08/16 11/01/16 History Spironolactone [Aldactone] 25 mg PO BID 08/08/16 11/01/16 History Allergies Allergy/AdvReac Type Severity Reaction Status Date / Time bupropion HCl Allergy Unknown Verified 11/01/16 10:56 [From Wellbutrin] fluoxetine HCl [From Prozac] Allergy Unknown Verified 11/01/16 10:56 Latex, Natural Rubber Allergy Unknown Verified 11/01/16 10:56 Physical Exam Osteopathic Statement: *. No significant issues noted on an osteopathic structural exam other than those noted in the History and Physical/Consult. Vitals: Vital Signs Temp Pulse Resp BP Pulse Ox 11/02/16 09:30 80 17 103/57 97 11/02/16 09:00 93 31 H 101/61 96 11/02/16 08:30 87 17 85/45 99 11/02/16 08:00 98.4 F 90 16 95/52 99 11/02/16 07:30 84 11 L 97/53 99 11/02/16 07:00 81 21 104/53 100 11/02/16 06:30 85 19 86/45 100 11/02/16 06:00 97 20 86/44 100 11/02/16 05:30 93 17 107/54 100 11/02/16 05:00 92 11 L 99/52 99 11/02/16 04:30 77 15 105/51 100 11/02/16 04:00 98.2 F 81 14 98/52 100 11/02/16 03:30 91 19 101/52 98 11/02/16 03:00 88 13 98/44 98 04/19/17 02:30 82 16 95/46 98 11/02/16 02:00 84 17 95/61 98 11/02/16 01:30 82 13 101/62 100 11/02/16 01:00 84 13 82/61 100 11/02/16 00:30 84 16 86/41 99 11/02/16 00:13 85 16 93/48 98 11/02/16 00:00 98.4 F 84 19 94/50 98 11/01/16 23:30 77 14 84/49 100 11/01/16 23:00 79 13 84/50 99 11/01/16 22:30 80 17 90/47 98 11/01/16 22:00 82 15 93/39 100 11/01/16 21:30 82 14 82/40 100 11/01/16 21:00 86 21 87/54 99 11/01/16 20:30 76 17 93/53 100 11/01/16 20:00 98.9 F 75 14 86/51 100 11/01/16 19:30 82 13 83/43 100 11/01/16 19:00 84 12 77/38 100 11/01/16 18:30 89 26 H 72/46 100 11/01/16 18:00 88 13 73/36 100 11/01/16 17:15 13 11/01/16 17:00 84 15 75/49 99 11/01/16 16:45 98.6 F 94 L 11/01/16 16:24 98.8 F 89 16 100/50 100 11/01/16 15:41 98.7 F 100 16 93/53 100 11/01/16 15:09 99.0 F 87 16 97/52 11/01/16 14:23 98.4 F 85 16 106/60 11/01/16 13:50 98.6 F 84 16 108/54 11/01/16 13:20 98.3 F 86 16 93/50 100 11/01/16 13:10 98.1 F 82 16 95/55 100 Intake and Output 11/01/16 11/02/16 11/02/16 22:59 06:59 14:59 Intake Total 3810 2226.000 374 Output Total 195 95 21 Balance 3615 2131.000 353 Intake: IV 3500 1000 100 0.9% NaCl with KCl 20 Meq 400 800 100 /l 1,000 ml @ 100 mls/hr IV .Q10H [facility] Rx#: [id number] Lactated Ringers 2,000 ml 3000 @ 999 mls/hr IV .Q2H1M [facility] Rx#:[id number] Magnesium Sulfate-D5w Pmx 200 1 gm In Dextrose/Water 1 100ml.bag @ 100 mls/hr IVPB Q1H [facility] Rx#: [id number] Potassium Chloride 10 meq 100 Lidocaine 2% Inj 10 mg In Sodium Chloride 0.9% 100 ml @ 100 mls/hr IV Q1HR [facility] Rx#:[id number] Intake, IV Titration 1226.000 274 Amount Norepinephrin 4 mg-0.9% 101.000 149 Ns Pmx 4 mg In 250 ml @ Titrate IV .Q0M [facility] Rx#: [id number] Sodium Chloride 0.9% 1, 1000 000 ml @ 999 mls/hr IV . Q1H1M [facility] Rx#:[id number] Sodium Phosphate 10 mmol 125 125 In Sodium Chloride 0.9% 250 ml @ 125 mls/hr IVPB ONCE [facility] Rx#:[id number] Blood Product 310 Rc As-3 Unit 310 [id number] Output: Urine 195 94 20 Stool 1 1 Other: Voiding Method Indwelling Catheter Indwelling Catheter Weight 59.1 kg No acute distress. Not real alert. Very jaundiced. HEENT examination is grossly unremarkable. Mucous membranes are moist. She's getting he has nasal O2 in place. Neck supple. Full range of motion. No adenopathy or thyromegaly. Neck veins are flat. Cardiovascular examination reveals distant heart sounds. S1 and S2 normal. No S3-S4 or murmur. Lungs reveal mostly clear breath sounds. No wheezes rhonchi or crackles. Abdomen is obese. There is obvious abdominal distention with ascites. There is a fluid wave. Extremities are intact. No cyanosis clubbing or edema. Skin reveals significant jaundice. Neurologic examination is brief but mostly nonfocal. Results - Laboratory Findings CBC and BMP: 11/02/16 03:28 11/02/16 03:28 PT/INR, D-dimer PT 19.5 sec (9.0-12.0) H 11/01/16 10:22 INR 2.0 (<1.1) 11/01/16 10:22 Abnormal lab findings: Abnormal Labs 11/01/16 11/01/16 11/01/16 18:22 18:22 23:40 WBC RBC 2.04 L 2.13 L Hgb 7.4 L 7.7 L Hct 22.9 L 22.6 L MCV 112.4 H 106.1 H D MCH 36.1 H 36.3 H RDW 23.0 H 23.1 H Plt Count 91 L 87 L Neutrophils # Sodium Potassium 3.1 L Creatinine Glucose POC Glucose (mg/dL) Calcium Phosphorus 11/02/16 11/02/16 11/02/16 00:18 03:28 03:28 WBC 11.0 H RBC 2.18 L Hgb 8.0 L Hct 23.2 L MCV 106.3 H MCH 36.6 H RDW 23.1 H Plt Count 97 L Neutrophils # 8.6 H Sodium 130 L Potassium Creatinine 1.50 H Glucose 106 H POC Glucose (mg/dL) 106 H Calcium 7.7 L Phosphorus 2.3 L 11/02/16 09:24 WBC RBC Hgb Hct MCV MCH RDW Plt Count Neutrophils # Sodium Potassium Creatinine Glucose POC Glucose (mg/dL) 124 H Calcium Phosphorus - Diagnostic Findings Chest x-ray: image reviewed (X-rays labs medications are all reviewed.) Assessment and Plan (1) Alcohol intoxication Status: Acute (2) Anemia Status: Acute (3) Coagulopathy Status: Acute (4) Hyperbilirubinemia Status: Acute (5) Acute alcoholic hepatitis Status: Acute (6) Alcohol intoxication Status: Acute (7) Ascites Status: Acute (8) Hypothyroidism Status: Acute (9) Jaundice Status: Acute (10) Liver cirrhosis, alcoholic Status: Acute (11) Liver failure Status: Acute (12) Thrombocytopenia Status: Chronic Plan: Plan dated 11/02/2016 The patient currently is on O2 at 2 L. She's getting appointment 9 IV at 10 mL an hour and another 0.9 IV with 20 of KCl at 100 mL an hour. She is on levothyroid at 8 mics per kilogram per minute. Her last drink was October 31. She may be at risk for alcohol withdrawal syndrome. We will have interventional radiology do a paracentesis on her on her today. In addition, we 'll infuse some 25% albumin after the paracentesis. Probably will have nephrology see her for possible hepatorenal syndrome. Additional recommendations and suggestions are forthcoming. Time with Patient: Greater than 30
[2016-11-02 09:59] VITALS: BMI 21.0
--- NOTE | 2016-11-02 10:37 | PN ---
DATE OF SERVICE: 11/02/2016 The patient is a 56-year-old white female with history of alcoholic cirrhosis of the liver diagnosed 2 years ago presents to the hospital with yellowish discoloration of skin, abdominal distention, not feeling well for the last few days duration. She was admitted to the intensive care unit. Last night became hypotensive. She was given 4 L of fluid bolus and this morning her blood pressure is better. She is on 10 mcg of Levophed presently. The patient denies any symptoms. She reports no abdominal pain. No nausea or vomiting. She continues to have abdominal distention. No rectal bleeding or melena. She had a hemoglobin of 6.4, received a unit of blood yesterday and hemoglobin is up to 7.4. On physical examination, she appears comfortable. Blood pressure is 105/51, pulse 77, temperature 98.2. HEENT EXAMINATION: Unremarkable. Conjunctivae pink. Sclerae deeply icteric. Oral cavity, no lesions. NECK: No JVD or lymph node enlargement. CHEST: Clear to auscultation. HEART: Regular rate and rhythm. ABDOMEN: Distended. Positive free fluid. EXTREMITIES: No pedal edema. SKIN: No rashes. NEURO: She is alert and oriented x3. No focal deficits. LABS: WBC is 11, hemoglobin 8, platelets 97,000. BUN 17, creatinine 1.5. Sodium 130, potassium 3.6, chloride 99, CO2 is 22. IMPRESSION: 1. Acute alcoholic hepatitis. 2. Alcoholic cirrhosis with portal hypertension. 3. Recurrent ascites. 4. Anemia and pancytopenia, most likely related to chronic liver disease. No active bleeding present since being in the hospital. She is status post 1 unit of blood transfusion yesterday. Last hemoglobin is 8 5. Mild renal insufficiency with improving BUN and creatinine following aggressive hydration, presently diuretics on hold. RECOMMENDATIONS: 1. Continue with symptomatic and supportive care. 2. Will give her 2 units of FFP tomorrow and will schedule her for a large volume paracentesis for therapeutic purposes. 3. Will not plan on any endoscopic intervention at the present time. 4. Once her BUN and creatinine improve, we will start her on gentle diuresis and will continue to follow the patient closely during hospital stay. Thank you for this consultation.
[2016-11-02] MEDS ORDERED: ALBUMIN HUMAN 25% 50 ML in EMPTY BAG 1 BAG IVPB ONE (10:50)
--- NOTE | 2016-11-02 10:55 | US ---
EXAMINATION TYPE: US abdomen limited DATE OF EXAM: 11/02/2016 10:29 AM COMPARISON: NONE CLINICAL HISTORY: ascites. Moderate ascites Fluid is noted in 3-4 quadrants. IMPRESSION: Moderate ascites is noted.
--- NOTE | 2016-11-02 13:06 | P.HPIM ---
History of Present Illness H&P Date: 11/02/16 Chief Complaint: Generalized weakness Patient is a 56-year-old female patient of Dr. Anderson orellana, who presented to [facility] emergency room due to generalized weakness, patient has known history of significant alcohol abuse she has known history of liver cirrhosis with ascites. Patient was evaluated in the emergency room she had significant jaundice she had large ascites she was having tremors and mental status changes, she was hypotensive. She was started on IV fluid and was admitted to intensive care unit, pulmonary critical care consultation was requested. Past Medical History Past Medical History: Heart Failure, Liver Disease, Renal Disease, Thyroid Disorder Additional Past Medical History / Comment(s): alcoholism, liver and kidney failure History of Any Multi-Drug Resistant Organisms: None Reported Past Surgical History: Bladder Surgery, Breast Surgery, Hysterectomy Additional Past Surgical History / Comment(s): lumpectomy, parencetesis January 02 2013 Past Anesthesia/Blood Transfusion Reactions: No Reported Reaction Additional Past Anesthesia/Blood Transfusion Reaction / Comment(s): never had a blood transfusion Past Psychological History: Anxiety, Depression, Panic Disorder Additional Psychological History / Comment(s): Pt resides with friend. She uses a walker to ambulate. She does not drive, she uses her insurance company for rides. Smoking Status: Current every day smoker Past Alcohol Use History: Abuse, Occasional Additional Past Alcohol Use History / Comment(s): Pt states she started smoking in 2003. She states she is an alcoholic and last drank yesterday. Past Drug Use History: None Reported Additional Drug Use History / Comment(s): Pt on occasion will use marijuana but not very often. - Past Family History Mother Family Medical History: COPD Additional Family Medical History / Comment(s): smoker Father Additional Family Medical History / Comment(s): alcoholism Medications and Allergies Home Medications Medication Instructions Recorded Confirmed Type Folic Acid 1 mg PO DAILY 08/06/14 11/01/16 History Thiamine HCl [Vitamin B-1] 100 mg PO DAILY 08/06/14 11/01/16 History Potassium Chloride [Klor-Con 10] 10 meq PO DAILY 07/03/15 11/01/16 History Cholecalciferol [Vitamin D3] 4,000 unit PO DAILY 08/08/16 11/01/16 History Citalopram Hydrobromide [CeleXA] 40 mg PO DAILY 08/08/16 11/01/16 History Furosemide [Lasix] 40 mg PO BID 08/08/16 11/01/16 History Lactulose [Cephulac] 20 gm PO TID 08/08/16 11/01/16 History Spironolactone [Aldactone] 25 mg PO BID 08/08/16 11/01/16 History Allergies Allergy/AdvReac Type Severity Reaction Status Date / Time bupropion HCl Allergy Unknown Verified 11/01/16 10:56 [From Wellbutrin] fluoxetine HCl [From Prozac] Allergy Unknown Verified 11/01/16 10:56 Latex, Natural Rubber Allergy Unknown Verified 11/01/16 10:56 Physical Exam Vitals: Vital Signs Temp Pulse Resp BP Pulse Ox 11/02/16 12:45 86 40 H 98/51 99 11/02/16 12:30 77 11 L 95/51 99 11/02/16 12:15 86 13 93/50 98 11/02/16 12:00 77 16 97/55 98 11/02/16 11:30 83 22 104/56 99 11/02/16 11:00 78 13 97/57 100 11/02/16 10:30 82 17 91/50 100 11/02/16 10:00 79 14 100/55 100 11/02/16 09:30 80 17 103/57 97 11/02/16 09:00 93 31 H 101/61 96 11/02/16 08:30 87 17 85/45 99 11/02/16 08:00 98.4 F 90 16 95/52 99 11/02/16 07:30 84 11 L 97/53 99 11/02/16 07:00 81 21 104/53 100 11/02/16 06:30 85 19 86/45 100 11/02/16 06:00 97 20 86/44 100 11/02/16 05:30 93 17 107/54 100 11/02/16 05:00 92 11 L 99/52 99 11/02/16 04:30 77 15 105/51 100 11/02/16 04:00 98.2 F 81 14 98/52 100 11/02/16 03:30 91 19 101/52 98 11/02/16 03:00 88 13 98/44 98 11/02/16 02:30 82 16 95/46 98 11/02/16 02:00 84 17 95/61 98 11/02/16 01:30 82 13 101/62 100 11/02/16 01:00 84 13 82/61 100 11/02/16 00:30 84 16 86/41 99 11/02/16 00:13 85 16 93/48 98 11/02/16 00:00 98.4 F 84 19 94/50 98 11/01/16 23:30 77 14 84/49 100 11/01/16 23:00 79 13 84/50 99 11/01/16 22:30 80 17 90/47 98 11/01/16 22:00 82 15 93/39 100 11/01/16 21:30 82 14 82/40 100 11/01/16 21:00 86 21 87/54 99 11/01/16 20:30 76 17 93/53 100 11/01/16 20:00 98.9 F 75 14 86/51 100 11/01/16 19:30 82 13 83/43 100 11/01/16 19:00 84 12 77/38 100 11/01/16 18:30 89 26 H 72/46 100 11/01/16 18:00 88 13 73/36 100 11/01/16 17:15 13 11/01/16 17:00 84 15 75/49 99 11/01/16 16:45 98.6 F 94 L 11/01/16 16:24 98.8 F 89 16 100/50 100 11/01/16 15:41 98.7 F 100 16 93/53 100 11/01/16 15:09 99.0 F 87 16 97/52 11/01/16 14:23 98.4 F 85 16 106/60 11/01/16 13:50 98.6 F 84 16 108/54 11/01/16 13:20 98.3 F 86 16 93/50 100 11/01/16 13:10 98.1 F 82 16 95/55 100 Intake and Output 11/01/16 11/02/16 11/02/16 22:59 06:59 14:59 Intake Total 3810 2226.000 774 Output Total 195 95 96 Balance 3615 2131.000 678 Intake: IV 3500 1000 500 0.9% NaCl with KCl 20 Meq 400 800 500 /l 1,000 ml @ 100 mls/hr IV .Q10H [facility] Rx#: [id number] Lactated Ringers 2,000 ml 3000 @ 999 mls/hr IV .Q2H1M [facility] Rx#:[id number] Magnesium Sulfate-D5w Pmx 200 1 gm In Dextrose/Water 1 100ml.bag @ 100 mls/hr IVPB Q1H [facility] Rx#: [id number] Potassium Chloride 10 meq 100 Lidocaine 2% Inj 10 mg In Sodium Chloride 0.9% 100 ml @ 100 mls/hr IV Q1HR [facility] Rx#:[id number] Intake, IV Titration 1226.000 274 Amount Norepinephrin 4 mg-0.9% 101.000 149 Ns Pmx 4 mg In 250 ml @ Titrate IV .Q0M [facility] Rx#: [id number] Sodium Chloride 0.9% 1, 1000 000 ml @ 999 mls/hr IV . Q1H1M [facility] Rx#:[id number] Sodium Phosphate 10 mmol 125 125 In Sodium Chloride 0.9% 250 ml @ 125 mls/hr IVPB ONCE [facility] Rx#:[id number] Blood Product 310 Rc As-3 Unit 310 [id number] Output: Urine 195 94 95 Stool 1 1 Other: Voiding Method Indwelling Catheter Indwelling Catheter Weight 59.1 kg 59.1 kg Patient Weight 11/03/16 06:59 Weight 59.1 kg In general patient is alert slightly somnolent in no apparent distress HEENT with significant jaundice otherwise no acute abnormality Neck is supple no JVD no goiter no lymphadenopathy Chest exam reveals a few scattered crackles bilaterally no wheezing Cardiac exam reveals regular heart sounds no gallops no murmurs Abdomen is tense with mild tenderness, patient has large ascites Extremity exam reveals no edema Results CBC & Chem 7: 11/02/16 03:28 11/02/16 03:28 Labs: Abnormal Lab Results - Last 24 Hours (Table) 11/01/16 11/01/16 11/01/16 Range/Units 18:22 18:22 23:40 WBC (3.8-10.6) k/uL RBC 2.04 L 2.13 L (3.80-5.40) m/uL Hgb 7.4 L 7.7 L (11.4-16.0) gm/dL Hct 22.9 L 22.6 L (34.0-46.0) % MCV 112.4 H 106.1 H D (80.0-100.0) fL MCH 36.1 H 36.3 H (25.0-35.0) pg RDW 23.0 H 23.1 H (11.5-15.5) % Plt Count 91 L 87 L (150-450) k/uL Neutrophils # (1.3-7.7) k/uL Sodium (137-145) mmol/L Potassium 3.1 L (3.5-5.1) mmol/L Creatinine (0.52-1.04) mg/dL Glucose (74-99) mg/dL POC Glucose (mg/dL) (75-99) mg/dL Calcium (8.4-10.2) mg/dL Phosphorus (2.5-4.5) mg/dL 11/02/16 11/02/16 11/02/16 Range/Units 00:18 03:28 03:28 WBC 11.0 H (3.8-10.6) k/uL RBC 2.18 L (3.80-5.40) m/uL Hgb 8.0 L (11.4-16.0) gm/dL Hct 23.2 L (34.0-46.0) % MCV 106.3 H (80.0-100.0) fL MCH 36.6 H (25.0-35.0) pg RDW 23.1 H (11.5-15.5) % Plt Count 97 L (150-450) k/uL Neutrophils # 8.6 H (1.3-7.7) k/uL Sodium 130 L (137-145) mmol/L Potassium (3.5-5.1) mmol/L Creatinine 1.50 H (0.52-1.04) mg/dL Glucose 106 H (74-99) mg/dL POC Glucose (mg/dL) 106 H (75-99) mg/dL Calcium 7.7 L (8.4-10.2) mg/dL Phosphorus 2.3 L (2.5-4.5) mg/dL 11/02/16 Range/Units 09:24 WBC (3.8-10.6) k/uL RBC (3.80-5.40) m/uL Hgb (11.4-16.0) gm/dL Hct (34.0-46.0) % MCV (80.0-100.0) fL MCH (25.0-35.0) pg RDW (11.5-15.5) % Plt Count (150-450) k/uL Neutrophils # (1.3-7.7) k/uL Sodium (137-145) mmol/L Potassium (3.5-5.1) mmol/L Creatinine (0.52-1.04) mg/dL Glucose (74-99) mg/dL POC Glucose (mg/dL) 124 H (75-99) mg/dL Calcium (8.4-10.2) mg/dL Phosphorus (2.5-4.5) mg/dL Thrombosis Risk Factor Assmnt - Choose All That Apply Any of the Below Risk Factors Present?: Yes Each Factor Represents 1 point: Age 41-60 years, Medical pt on bed rest Other Risk Factors: Yes Each Risk Factor Represents 2 Points: Patient confined to bed Other congenital or acquired thrombophilia - If yes, enter type in comment: No Thrombosis Risk Factor Assessment Total Risk Factor Score: 4 Thrombosis Risk Factor Assessment Level: Moderate Risk Assessment and Plan Plan: #1 liver cirrhosis with large ascites and chronic liver failure #2 hypotension requiring multiple fluid boluses #3 alcohol intoxication with acute alcoholic hepatitis #4 hypothyroidism patient stopped taking Synthroid Will check TSH #5 anemia #6 thrombocytopenia #7 underlying history of depression At this time invasive radiology were consulted for paracentesis Blood pressure has Poppy eyes Continue was current management with IV fluid and electrolyte correction Awaiting fluid culture results currently maintained on IV Rocephin Prognosis is poor due to the severity of her underlying liver disease
[2016-11-02 14:19] LABS: Glucose,Whole Blood 125 mg/dL (75-99)
[2016-11-02] MEDS ORDERED: POTASSIUM CHLORIDE ER 20 MEQ TAB.ER PO STA (15:08)
[2016-11-02] MEDS: SODIUM CHLORIDE 0.9% 1,000 ML IV SCH (15:14)
--- NOTE | 2016-11-02 15:44 | US ---
EXAMINATION TYPE: US paracentesis abd w/image DATE OF EXAM: 11/02/2016 1:04 PM COMPARISON: NONE HISTORY: Ascites. PROCEDURE: Maximal barrier technique was utilized. The skin overlying a suitable pocket of fluid was localized with ultrasound and the overlying skin was prepped and draped. Ultrasound was utilized with sterile technique. Lidocaine was used for local anesthesia and a skin ihren made with a scalpel. Catheter was advanced under direct ultrasound guidance into a suitable pocket of fluid and approximately 7 liters of yellow fluid were removed. Catheter was withdrawn and hemostasis achieved. There is no immediate complication; the patient is discharged in stable condition. IMPRESSION: STATUS POST ULTRASOUND GUIDED PARACENTESIS FOR PALLIATION OF ASCITES. THIS PROCEDURE WA S PERFORMED BY THE UNDERSIGNED. Specimen sent for laboratory analysis.
[2016-11-02] MEDS: ALBUMIN HUMAN 25% 50 ML in EMPTY BAG 1 BAG IVPB SCH ×2 (15:45→17:00)
--- NOTE | 2016-11-02 16:17 | US ---
EXAMINATION TYPE: US kidneys/renal and bladder DATE OF EXAM: 11/02/2016 3:50 PM COMPARISON: NONE CLINICAL HISTORY: ascites/ hepato renal syndrome. ICU patient with UTI, hypokalemia, hyperbilirubinemia EXAM MEASUREMENTS: Right Kidney: 10.3 x 4.7 x 4.6cm Left Kidney: 11.3 x 4.1 x 5.6cm Post Void Residual Volume: Not assessed on ICU patient There is ascites Right Kidney: lower pole cortical cyst = 1.9 x 1.7 x 1.5cm Left Kidney: No hydronephrosis or masses seen; superior to left kidney tortuous prominent veins are n oted Bladder: Dean catheter is noted within bladder Cortical medullary differentiation is maintained. There are varices are present in the upper abdomen. IMPRESSION: Renal sizes as described. Varices and ascites, correlate for portal hypertension.
[2016-11-03] MEDS: NOREPINEPHRIN 4 MG-0.9% NS PMX 4 MG/250 ML ML IV SCH ×3 (01:23→09:28)
[2016-11-03] MEDS: SODIUM CHLORIDE 0.9% 1,000 ML IV SCH (04:31)
[2016-11-03 05:23] LABS: Anisocytosis Moderate; Basophils # (A) 0.1 k/uL (0-0.2); Basophils % (A) 1 %; CH 35.1; CHCM 32.6; Eosinophils # (A) 0.3 k/uL (0-0.7); Eosinophils % (A) 3 %; HCT 22.9 % (34.0-46.0); HDW 2.86; HGB 7.9 gm/dL (11.4-16.0); Luc # (Auto) 0.17; Luc % (Auto) 2; Lymphocytes # (A) 1.1 k/uL (1.0-4.8); Lymphocytes % (A) 10 %; MCH 37.5 pg (25.0-35.0); MCHC 34.4 g/dL (31.0-37.0); Macrocytosis Marked; Mean Platelet Volume 7.2; Monocytes # (A) 0.5 k/uL (0-1.0); Monocytes % (A) 5 %; Neutrophils # (A) 8.3 k/uL (1.3-7.7); Neutrophils % (A) 80 %; RDW 22.7 % (11.5-15.5); WBC 10.4 k/uL (3.8-10.6); WBC (Perox) 10.83
[2016-11-03 05:35] LABS: Calcium 7.5 mg/dL (8.4-10.2); Magnesium 1.6 mg/dL (1.6-2.3); Phosphorous 1.6 mg/dL (2.5-4.5); Potassium 3.2 mmol/L (3.5-5.1); Total Bilirubin 14.8 mg/dL (0.2-1.3); Total Protein 6.4 g/dL (6.3-8.2)
[2016-11-03 06:11] LABS: Manual Review Performed; Polychromasia Present
[2016-11-03 06:12] LABS: Ovalocytes Present; Tear Drop Cells Present
[2016-11-03] MEDS ORDERED: Phosphorus Replacement Protoco 1 EACH MISC MISCELLANE PRN (07:07)
[2016-11-03] MEDS ORDERED: MAGNESIUM SULFATE-D5W PMX 1 GM in DEXTROSE/WATER 1 100ML.BAG IVPB ONE (07:09)
[2016-11-03] MEDS: POTASSIUM PHOSPHATE 10 MMOL in SODIUM CHLORIDE 0.9% 250 ML IV SCH ×2 (08:16→14:07)
[2016-11-03] MEDS: PANTOPRAZOLE 40 MG/10 ML VIAL IV SCH (08:23)
[2016-11-03] MEDS: NICOTINE 14MG/24HR PATCH TRANSDERM SCH (08:24)
[2016-11-03] MEDS ORDERED: FUROSEMIDE 10 MG/ML 4 ML VIAL IV STA (09:48)
--- NOTE | 2016-11-03 09:57 | P.NPCON ---
History of Present Illness - Reason for Consult acute renal failure - History of Present Illness Reason for consultation: Acute kidney injury History of present illness: Patient is a 56-year-old female seen in renal consultation for acute kidney injury. Her baseline creatinine is near 1 and was elevated at 1.8 on admission. It is improved to 1.2 today. Patient presented to the hospital with generalized weakness. Patient does drink quite a bit of alcohol. She admits to drinking half a pint of liquor daily along with a can of beer for the last 4 months or so. She is noted to have liver cirrhosis with ascites. She underwent paracentesis on November 02 with 7 L drained. She received 12.5 g of albumin and then another 25 g additionally. She is currently resting in bed. Denies any vomiting or diarrhea. Oral intake is poor. Her blood pressures have been in the systolic 90s mostly. She is oliguric with urine output in the range of 10-15 mL an hour. She is currently maintained on normal saline at 75 mL an hour along with 12 mics of levo fed. Vital signs are stable. General: The patient appeared well nourished and normally developed. HEENT: Head exam is unremarkable. Neck is without jugular venous distension. LUNGS: Lungs are clear to auscultation and percussion. Breath sounds decreased. HEART: Rate and Rhythm are regular. First and second heart sounds normal. No murmurs, rubs or gallops. ABDOMEN: Abdominal exam reveals normal bowel sounds. Moderately distended. EXTREMITITES: No clubbing, cyanosis, or edema. Past Medical History Past Medical History: Heart Failure, Liver Disease, Renal Disease, Thyroid Disorder Additional Past Medical History / Comment(s): alcoholism, liver and kidney failure History of Any Multi-Drug Resistant Organisms: None Reported Past Surgical History: Bladder Surgery, Breast Surgery, Hysterectomy Additional Past Surgical History / Comment(s): lumpectomy, parencetesis January 02 2013 Past Anesthesia/Blood Transfusion Reactions: No Reported Reaction Additional Past Anesthesia/Blood Transfusion Reaction / Comment(s): never had a blood transfusion Past Psychological History: Anxiety, Depression, Panic Disorder Additional Psychological History / Comment(s): Pt resides with friend. She uses a walker to ambulate. She does not drive, she uses her insurance company for rides. Smoking Status: Current every day smoker Past Alcohol Use History: Abuse, Occasional Additional Past Alcohol Use History / Comment(s): Pt states she started smoking in 2003. She states she is an alcoholic and last drank yesterday. Past Drug Use History: None Reported Additional Drug Use History / Comment(s): Pt on occasion will use marijuana but not very often. - Past Family History Mother Family Medical History: COPD Additional Family Medical History / Comment(s): smoker Father Additional Family Medical History / Comment(s): alcoholism Medications and Allergies Home Medications Medication Instructions Recorded Confirmed Type Folic Acid 1 mg PO DAILY 08/06/14 11/01/16 History Thiamine HCl [Vitamin B-1] 100 mg PO DAILY 08/06/14 11/01/16 History Potassium Chloride [Klor-Con 10] 10 meq PO DAILY 07/03/15 11/01/16 History Cholecalciferol [Vitamin D3] 4,000 unit PO DAILY 08/08/16 11/01/16 History Citalopram Hydrobromide [CeleXA] 40 mg PO DAILY 08/08/16 11/01/16 History Furosemide [Lasix] 40 mg PO BID 08/08/16 11/01/16 History Lactulose [Cephulac] 20 gm PO TID 08/08/16 11/01/16 History Spironolactone [Aldactone] 25 mg PO BID 08/08/16 11/01/16 History Allergies Allergy/AdvReac Type Severity Reaction Status Date / Time bupropion HCl Allergy Unknown Verified 11/01/16 10:56 [From Wellbutrin] fluoxetine HCl [From Prozac] Allergy Unknown Verified 11/01/16 10:56 Latex, Natural Rubber Allergy Unknown Verified 11/01/16 10:56 Physical Exam Vitals: Vital Signs Temp Pulse Resp BP Pulse Ox 11/03/16 09:00 87 20 95/44 100 11/03/16 08:30 87 17 103/52 99 11/03/16 08:00 98.6 F 85 19 105/56 96 11/03/16 07:30 89 18 100/59 97 11/03/16 07:00 82 14 100/51 99 11/03/16 06:30 82 23 100/54 100 11/03/16 06:00 82 15 103/50 99 11/03/16 05:30 81 17 106/57 98 11/03/16 05:00 80 14 98/51 98 11/03/16 04:30 94 22 102/62 97 11/03/16 04:00 97.8 F 86 14 99/58 99 11/03/16 03:30 94 18 96/53 96 11/03/16 03:00 83 27 H 95/50 98 11/03/16 02:30 80 20 92/49 98 11/03/16 02:00 84 14 91/46 100 11/03/16 01:30 86 26 H 87/45 99 11/03/16 01:00 85 15 94/45 99 11/03/16 00:30 91 22 92/46 98 11/03/16 00:00 98.3 F 88 17 98/46 100 11/02/16 23:30 87 15 102/51 99 11/02/16 23:00 76 16 95/54 100 11/02/16 22:30 80 14 97/54 100 11/02/16 22:00 80 16 100/55 100 11/02/16 21:30 79 18 93/56 100 11/02/16 21:00 87 13 101/48 98 11/02/16 20:30 83 16 93/41 100 11/02/16 20:00 98.4 F 90 25 H 91/42 100 11/02/16 19:30 81 18 93/41 100 11/02/16 19:00 80 14 96/57 100 11/02/16 18:30 81 15 97/55 100 11/02/16 18:00 77 17 96/51 100 11/02/16 17:30 79 13 99/49 100 11/02/16 17:00 79 15 101/51 100 11/02/16 16:30 80 16 101/52 100 11/02/16 16:00 98.1 F 81 16 98/51 100 11/02/16 15:30 78 26 H 92/49 99 11/02/16 15:00 83 13 79/43 100 11/02/16 14:30 70 13 94/51 100 11/02/16 14:00 70 16 84/49 100 11/02/16 13:30 68 12 85/44 100 11/02/16 13:00 73 14 97/51 99 11/02/16 12:45 86 40 H 98/51 99 11/02/16 12:30 77 11 L 95/51 99 11/02/16 12:15 86 13 93/50 98 11/02/16 12:00 77 13 97/55 98 11/02/16 11:30 83 22 104/56 99 11/02/16 11:00 78 13 97/57 100 11/02/16 10:30 82 17 91/50 100 11/02/16 10:00 79 14 100/55 100 Intake and Output 11/02/16 11/03/16 11/03/16 22:59 06:59 14:59 Intake Total 1008.25 1081.25 325 Output Total 170 110 15 Balance 838.25 971.25 310 Intake: IV 725 600 75 0.9% NaCl with KCl 20 Meq 100 /l 1,000 ml @ 100 mls/hr IV .Q10H [facility] Rx#: [id number] Albumin Human 25% 50 ml 100 In Empty Bag 1 bag @ 100 mls/hr IVPB ONCE ONE Rx#: [id number] Sodium Chloride 0.9% 1, 525 600 75 000 ml @ 75 mls/hr IV . [id number] [facility] Rx#:[id number] Intake, IV Titration 283.25 481.25 250 Amount Norepinephrin 4 mg-0.9% 283.25 481.25 250 Ns Pmx 4 mg In 250 ml @ Titrate IV .Q0M [facility] Rx#: [id number] Output: Urine 170 110 15 Other: Voiding Method Indwelling Catheter Indwelling Catheter Weight 56.6 kg Results - Lab Results Most recent lab results Calcium 7.5 mg/dL (8.4-10.2) L 11/03/16 04:45 Phosphorus 1.6 mg/dL (2.5-4.5) L 11/03/16 04:45 Magnesium 1.6 mg/dL (1.6-2.3) 11/03/16 04:45 11/03/16 04:45 11/03/16 04:45 Assessment and Plan Plan: Assessment: #1. Nonoliguric acute kidney injury mostly prerenal in nature secondary to hypotension and large volume paracentesis. Creatinine was 1.8 and is down to 1.2 today. No evidence of hydronephrosis. #2. Liver cirrhosis with ascites. #3. Status post large volume paracentesis on November 02 at 7 L drained. She received a total of 37.5 g of albumin. #4. Hypervolemic hyponatremia secondary to cirrhosis. #5. Hypokalemia secondary to poor oral intake. #6. Metabolic acidosis secondary to acute kidney injury as well as a component of compensation for underlying respiratory alkalosis due to cirrhosis. #7. Hypotension maintained on vasopressors. #8. Hypophosphatemia secondary to poor nutritional intake. Plan: Maintain normal saline to be run at 75 mL an hour. Start oral sodium bicarbonate 650 mg twice daily. Replace potassium and phosphorus. Currently on IV K-Phos. Start Midodrine 10 mg 3 times daily. Maintain Dean catheter with strict I's and O's. Avoid nephrotoxic agents. Wean vasopressors as blood pressure tolerates. Lasix 40 mg IV once today. May need to be transferred to tertiary care center with hepatology care. Thank you for the consultation. I will continue to follow the patient with you during her hospital stay.
[2016-11-03] MEDS ORDERED: SODIUM BICARBONATE TAB 650 MG TAB PO SCH (10:30)
--- NOTE | 2016-11-03 10:44 | P.PN ---
Subjective Principal diagnosis: alcohol hepatitis 56-year-old female history of alcohol cirrhosis presents with jaundice abdominal distention ascitesand nonoliguric acute kidney injury prerenal secondary to hypotension. Status post paracentesis yesterday 7 L removed. Low urine output. Nephrology following closely. Lasix ordered. Denies abdominal pain and rectal bleeding hematemesis hematochezia melena. Consuming alcohol prior to admission. Received 1 unit of blood since admission. Hemoglobin today 7.9. platelet 108. MCV 109.total bilirubin 14.8. AST 53. ALT 21. Alkaline phosphate is 233. Ammonia 38. Receiving IV pressors. Objective - Vital Signs Vital signs: Vital Signs Temp 98.6 F 11/03/16 08:00 Pulse 87 11/03/16 10:00 Resp 18 11/03/16 10:00 BP 95/55 11/03/16 10:00 Pulse Ox 99 11/03/16 10:00 Intake & Output 11/02/16 11/03/16 11/03/16 18:59 06:59 18:59 Intake Total 1749.00 1631.25 885 Output Total 188 210 65 Balance 1561.00 1421.25 820 Weight 59.1 kg 56.6 kg Intake: IV 1225 900 446 0.9% NaCl with KCl 20 Meq 900 /l 1,000 ml @ 100 mls/hr IV .Q10H [facility] Rx#: [id number] Albumin Human 25% 50 ml 100 In Empty Bag 1 bag @ 100 mls/hr IVPB ONCE ONE Rx#: [id number] Norepinephrin 4 mg-0.9% 146 Ns Pmx 4 mg In 250 ml @ Titrate IV .Q0M [facility] Rx#: [id number] Sodium Chloride 0.9% 1, 225 900 300 000 ml @ 75 mls/hr IV . [id number] [facility] Rx#:[id number] Intake, IV Titration 524.00 731.25 439 Amount Norepinephrin 4 mg-0.9% 399.00 731.25 250 Ns Pmx 4 mg In 250 ml @ Titrate IV .Q0M [facility] Rx#: [id number] Potassium Phosphate 10 189 mmol In Sodium Chloride 0 .9% 250 ml @ 125 mls/hr IV Q2H [facility] Rx#:[id number] Sodium Phosphate 10 mmol 125 In Sodium Chloride 0.9% 250 ml @ 125 mls/hr IVPB ONCE ONE Rx#:[id number] Output: Urine 185 210 65 Stool 3 Other: Voiding Method Indwelling Catheter Indwelling Catheter Indwelling Catheter - Exam General appearance: The patient is alert, oriented, in no acute distress.visibly jaundice HET: Head is normocephalic and atraumatic. Pupils are equal and reactive.sclerae icterus. Oropharynx is clear without lesions. Neck: Supple without lymphadenopathy. Trachea midline. Heart: S1 S2. Regular rate and rhythm. Lungs: No crackles or wheezes are heard. Abdomen: Soft, nontender, distended with mild ascitestended with bowel sounds. No peritoneal signs. No palpable organomegaly or masses. Extremities: Normal skin color and turgor. No cyanosis, rash, ulceration, clubbing, or edema. Radial and pedal pulses are 2/4 bilaterally.Dean dark geraldine urine. Neurological: No focal deficits. Strength and sensation are grossly intact. - Labs CBC & Chem 7: 11/03/16 04:45 11/03/16 04:45 Labs: Abnormal Lab Results - Last 24 Hours (Table) 11/02/16 11/02/16 11/03/16 Range/Units 12:20 14:18 04:45 RBC 2.10 L (3.80-5.40) m/uL Hgb 7.9 L (11.4-16.0) gm/dL Hct 22.9 L (34.0-46.0) % MCV 109.0 H (80.0-100.0) fL MCH 37.5 H (25.0-35.0) pg RDW 22.7 H (11.5-15.5) % Plt Count 108 L (150-450) k/uL Neutrophils # 8.3 H (1.3-7.7) k/uL Sodium (137-145) mmol/L Potassium (3.5-5.1) mmol/L Carbon Dioxide (22-30) mmol/L Creatinine (0.52-1.04) mg/dL Glucose (74-99) mg/dL POC Glucose (mg/dL) 125 H (75-99) mg/dL Calcium (8.4-10.2) mg/dL Phosphorus (2.5-4.5) mg/dL Total Bilirubin (0.2-1.3) mg/dL AST (14-36) U/L Alkaline Phosphatase (38-126) U/L Ammonia 38 H (<30) umol/L Albumin (3.5-5.0) g/dL 11/03/16 Range/Units 04:45 RBC (3.80-5.40) m/uL Hgb (11.4-16.0) gm/dL Hct (34.0-46.0) % MCV (80.0-100.0) fL MCH (25.0-35.0) pg RDW (11.5-15.5) % Plt Count (150-450) k/uL Neutrophils # (1.3-7.7) k/uL Sodium 130 L (137-145) mmol/L Potassium 3.2 L (3.5-5.1) mmol/L Carbon Dioxide 17 L (22-30) mmol/L Creatinine 1.20 H (0.52-1.04) mg/dL Glucose 122 H (74-99) mg/dL POC Glucose (mg/dL) (75-99) mg/dL Calcium 7.5 L (8.4-10.2) mg/dL Phosphorus 1.6 L (2.5-4.5) mg/dL Total Bilirubin 14.8 H (0.2-1.3) mg/dL AST 53 H (14-36) U/L Alkaline Phosphatase 233 H (38-126) U/L Ammonia (<30) umol/L Albumin 2.4 L (3.5-5.0) g/dL Microbiology - Last 24 Hours (Table) 11/02/16 11:47 Gram Stain - Preliminary Peritoneal Fluid Body Fluid Culture - Preliminary 11/02/16 11:47 Anaerobic Culture - Preliminary Peritoneal Fluid Assessment and Plan Plan: impression: 1. Acute alcohol hepatitis. 2. Anemia component of acute blood loss status post transfusion with no overt bleeding at this time. Possible a call gastritis gastropathy esophagitis. 3. Nonoliguric acute kidney injury prerenal. 4. Ascites secondary to underlying alcohol liver cirrhosis status post paracentesis. 5. Hypovolemic hyponatremia. 6. Mild elevation of serum ammonia without coma. recommendations: 1. We'll defer to nephrology for diuretic management. 2. Advance to diet as tolerated. 3. We'll consider starting prednisone 40 mg daily tomorrow if hemoglobin remains stable without overt GI bleeding for treatment of acute alcohol hepatitis. 4. Will follow closely with you. Continue GI prophylaxis. We'll add lactulose 20 g daily. Repeat CMP, ammonia and PT/INR in a.m. assessment and plan a care discussed with Dr. Smart
--- NOTE | 2016-11-03 10:45 | P.PN ---
Subjective This is a 56-year-old female who sees a family practice doctor in [facility]. She has a history of significant alcohol abuse and alcoholic liver disease. The patient has a history of chronic ascites and has had paracentesis abdominis in the past. She drinks about one half a pint of vodka a day and a bit can appear every day. She's been doing that for about 20+ years. She's been drinking more heavily recently and she came into the hospital with complaints of weakness. Had some mental status changes and also some hypotension. The patient was to minute to the ICU as I spoke to the ER doctor. She also has some abdominal distention from ascites and some difficulty breathing. No chest pain. Her home medications included folic acid thiamine potassium chloride vitamin D3 Celexa Lasix lactulose and Aldactone. Was also previously on Synthroid. ALLERGIES include Wellbutrin Prozac and latex. She is seen again today 11/03/2016 in follow-up in the intensive care unit. She is currently awake and alert. She is rather uncomfortable and his overall feelings of fatigue and malaise. She did have 7 L of fluid removed during a paracentesis yesterday. She did receive some albumin. She is maintaining O2 saturations in the high 90s on 2 L/m per nasal cannula. She's been hemodynamically stable. Her current AST is 53. Hemoglobin 7.9. Platelet count 108,000,, MCV 109. Creatinine 1.20. There is concern regarding hepatorenal syndrome. Objective - Vital Signs Vital signs: Vital Signs Temp 98.6 F 11/03/16 08:00 Pulse 87 11/03/16 10:00 Resp 18 11/03/16 10:00 BP 95/55 11/03/16 10:00 Pulse Ox 99 11/03/16 10:00 Intake & Output 11/02/16 11/03/16 11/03/16 18:59 06:59 18:59 Intake Total 1749.00 1631.25 885 Output Total 188 210 65 Balance 1561.00 1421.25 820 Weight 59.1 kg 56.6 kg Intake: IV 1225 900 446 0.9% NaCl with KCl 20 Meq 900 /l 1,000 ml @ 100 mls/hr IV .Q10H [facility] Rx#: [id number] Albumin Human 25% 50 ml 100 In Empty Bag 1 bag @ 100 mls/hr IVPB ONCE [facility] Rx#: [id number] Norepinephrin 4 mg-0.9% 146 Ns Pmx 4 mg In 250 ml @ Titrate IV .Q0M [facility] Rx#: [id number] Sodium Chloride 0.9% 1, 225 900 300 000 ml @ 75 mls/hr IV . [id number] [facility] Rx#:[id number] Intake, IV Titration 524.00 731.25 439 Amount Norepinephrin 4 mg-0.9% 399.00 731.25 250 Ns Pmx 4 mg In 250 ml @ Titrate IV .Q0M [facility] Rx#: [id number] Potassium Phosphate 10 189 mmol In Sodium Chloride 0 .9% 250 ml @ 125 mls/hr IV Q2H [facility] Rx#:[id number] Sodium Phosphate 10 mmol 125 In Sodium Chloride 0.9% 250 ml @ 125 mls/hr IVPB ONCE ONE Rx#:[id number] Output: Urine 185 210 65 Stool 3 Other: Voiding Method Indwelling Catheter Indwelling Catheter Indwelling Catheter - Exam No acute distress. Not real alert. Very jaundiced. HEENT examination is grossly unremarkable. Mucous membranes are moist. She's getting he has nasal O2 in place. Neck supple. Full range of motion. No adenopathy or thyromegaly. Neck veins are flat. Cardiovascular examination reveals distant heart sounds. S1 and S2 normal. No S3-S4 or murmur. Lungs reveal mostly clear breath sounds. No wheezes rhonchi or crackles. Abdomen is obese. There is obvious abdominal distention with ascites. There is a fluid wave. Extremities are intact. No cyanosis clubbing or edema. Skin reveals significant jaundice. Neurologic examination is brief but mostly nonfocal. - Labs CBC & Chem 7: 11/03/16 04:45 11/03/16 04:45 Labs: Abnormal Lab Results - Last 24 Hours (Table) 11/02/16 11/02/16 11/03/16 Range/Units 12:20 14:18 04:45 RBC 2.10 L (3.80-5.40) m/uL Hgb 7.9 L (11.4-16.0) gm/dL Hct 22.9 L (34.0-46.0) % MCV 109.0 H (80.0-100.0) fL MCH 37.5 H (25.0-35.0) pg RDW 22.7 H (11.5-15.5) % Plt Count 108 L (150-450) k/uL Neutrophils # 8.3 H (1.3-7.7) k/uL Sodium (137-145) mmol/L Potassium (3.5-5.1) mmol/L Carbon Dioxide (22-30) mmol/L Creatinine (0.52-1.04) mg/dL Glucose (74-99) mg/dL POC Glucose (mg/dL) 125 H (75-99) mg/dL Calcium (8.4-10.2) mg/dL Phosphorus (2.5-4.5) mg/dL Total Bilirubin (0.2-1.3) mg/dL AST (14-36) U/L Alkaline Phosphatase (38-126) U/L Ammonia 38 H (<30) umol/L Albumin (3.5-5.0) g/dL 11/03/16 Range/Units 04:45 RBC (3.80-5.40) m/uL Hgb (11.4-16.0) gm/dL Hct (34.0-46.0) % MCV (80.0-100.0) fL MCH (25.0-35.0) pg RDW (11.5-15.5) % Plt Count (150-450) k/uL Neutrophils # (1.3-7.7) k/uL Sodium 130 L (137-145) mmol/L Potassium 3.2 L (3.5-5.1) mmol/L Carbon Dioxide 17 L (22-30) mmol/L Creatinine 1.20 H (0.52-1.04) mg/dL Glucose 122 H (74-99) mg/dL POC Glucose (mg/dL) (75-99) mg/dL Calcium 7.5 L (8.4-10.2) mg/dL Phosphorus 1.6 L (2.5-4.5) mg/dL Total Bilirubin 14.8 H (0.2-1.3) mg/dL AST 53 H (14-36) U/L Alkaline Phosphatase 233 H (38-126) U/L Ammonia (<30) umol/L Albumin 2.4 L (3.5-5.0) g/dL Microbiology - Last 24 Hours (Table) 11/02/16 11:47 Gram Stain - Preliminary Peritoneal Fluid Body Fluid Culture - Preliminary 11/02/16 11:47 Anaerobic Culture - Preliminary Peritoneal Fluid Assessment and Plan Plan: Assessment and Plan (1) Alcohol intoxication Status: Acute (2) Anemia Status: Acute (3) Coagulopathy Status: Acute (4) Hyperbilirubinemia Status: Acute (5) Acute alcoholic hepatitis Status: Acute (6) Alcohol intoxication Status: Acute (7) Ascites Status: Acute (8) Hypothyroidism Status: Acute (9) Jaundice Status: Acute (10) Liver cirrhosis, alcoholic Status: Acute (11) Liver failure Status: Acute (12) Thrombocytopenia Status: Chronic Plan: The patient was seen and evaluated by Dr. Mcleod. Her overall condition remains quite critical at this point. She is on norepinephrine at 15 mcg/m. She has a 0.9 at 75 mL per hour. There is definite concern regarding hepatorenal syndrome. We may plan to transfer the patient to tertiary care center today. In the interim we will place a central line and arterial lines better fluid resuscitation, pressors and blood pressure monitoring. Her overall prognosis remains quite guarded. We'll continue to monitor her here in the intensive care unit. We'll continue to follow.
[2016-11-03] MEDS ORDERED: LACTULOSE 20 GM/30 ML CUP PO SCH (11:00)
--- NOTE | 2016-11-03 11:41 | XR ---
EXAMINATION TYPE: XR chest 1V confirm line [facility] DATE OF EXAM: 11/03/2016 11:36 AM COMPARISON: Prior chest x-ray 01 November 2016 HISTORY: Status post central venous catheter placement TECHNIQUE: Single frontal view of the chest is obtained. FINDINGS: Left jugular central venous catheter present, distal tip within the right atrium. No pneum othorax. Small left pleural effusion may be present, there is likely basilar atelectasis, lung volume is low. IMPRESSION: Distal tip of the catheter is within the right atrium. No evident pneumothorax. Possible small left pleural effusion.
--- NOTE | 2016-11-03 11:43 | P.PN ---
Subjective This is a 56-year-old female who presented with generalized weakness jaundice and abdominal distention. She has a known history of alcohol liver cirrhosis. Also had acute kidney injury likely secondary to her hypertension. She underwent paracentesis with 7 L removed yesterday. GI service and nephrology are full following. Patient had improvement in her abdominal distention. She is still on Levophed titrating down she's at 15 mics. She reports having bowel movements. Denies any chest pain shortness breath. Denies any nausea or vomiting. Objective - Vital Signs Vital signs: Vital Signs Temp 98.6 F 11/03/16 08:00 Pulse 87 11/03/16 10:00 Resp 18 11/03/16 10:00 BP 95/55 11/03/16 10:00 Pulse Ox 99 11/03/16 10:00 Intake & Output 11/02/16 11/03/16 11/03/16 18:59 06:59 18:59 Intake Total 1749.00 1631.25 885 Output Total 188 210 65 Balance 1561.00 1421.25 820 Weight 59.1 kg 56.6 kg Intake: IV 1225 900 446 0.9% NaCl with KCl 20 Meq 900 /l 1,000 ml @ 100 mls/hr IV .Q10H ONE Rx#: [id number] Albumin Human 25% 50 ml 100 In Empty Bag 1 bag @ 100 mls/hr IVPB ONCE ONE Rx#: [id number] Norepinephrin 4 mg-0.9% 146 Ns Pmx 4 mg In 250 ml @ Titrate IV .Q0M MALACHI Rx#: [id number] Sodium Chloride 0.9% 1, 225 900 300 000 ml @ 75 mls/hr IV . [id number] MALACHI Rx#:[id number] Intake, IV Titration 524.00 731.25 439 Amount Norepinephrin 4 mg-0.9% 399.00 731.25 250 Ns Pmx 4 mg In 250 ml @ Titrate IV .Q0M MALACHI Rx#: [id number] Potassium Phosphate 10 189 mmol In Sodium Chloride 0 .9% 250 ml @ 125 mls/hr IV Q2H MALACHI Rx#:[id number] Sodium Phosphate 10 mmol 125 In Sodium Chloride 0.9% 250 ml @ 125 mls/hr IVPB ONCE ONE Rx#:[id number] Output: Urine 185 210 65 Stool 3 Other: Voiding Method Indwelling Catheter Indwelling Catheter Indwelling Catheter - Exam Skin jaundice Head normocephalic Neck supple Lungs clear to auscultation bilaterally no wheezing or crackles Heart regular rate and rhythm S1-S2, no rub or gallop Abdomen is soft nontender nondistended positive bowel sounds no hepatosplenomegaly Extremities no edema Neuro alert and orientated to 3 - Labs CBC & Chem 7: 11/03/16 04:45 11/03/16 04:45 Labs: Abnormal Lab Results - Last 24 Hours (Table) 11/02/16 11/02/16 11/03/16 Range/Units 12:20 14:18 04:45 RBC 2.10 L (3.80-5.40) m/uL Hgb 7.9 L (11.4-16.0) gm/dL Hct 22.9 L (34.0-46.0) % MCV 109.0 H (80.0-100.0) fL MCH 37.5 H (25.0-35.0) pg RDW 22.7 H (11.5-15.5) % Plt Count 108 L (150-450) k/uL Neutrophils # 8.3 H (1.3-7.7) k/uL Sodium (137-145) mmol/L Potassium (3.5-5.1) mmol/L Carbon Dioxide (22-30) mmol/L Creatinine (0.52-1.04) mg/dL Glucose (74-99) mg/dL POC Glucose (mg/dL) 125 H (75-99) mg/dL Calcium (8.4-10.2) mg/dL Phosphorus (2.5-4.5) mg/dL Total Bilirubin (0.2-1.3) mg/dL AST (14-36) U/L Alkaline Phosphatase (38-126) U/L Ammonia 38 H (<30) umol/L Albumin (3.5-5.0) g/dL 11/03/16 Range/Units 04:45 RBC (3.80-5.40) m/uL Hgb (11.4-16.0) gm/dL Hct (34.0-46.0) % MCV (80.0-100.0) fL MCH (25.0-35.0) pg RDW (11.5-15.5) % Plt Count (150-450) k/uL Neutrophils # (1.3-7.7) k/uL Sodium 130 L (137-145) mmol/L Potassium 3.2 L (3.5-5.1) mmol/L Carbon Dioxide 17 L (22-30) mmol/L Creatinine 1.20 H (0.52-1.04) mg/dL Glucose 122 H (74-99) mg/dL POC Glucose (mg/dL) (75-99) mg/dL Calcium 7.5 L (8.4-10.2) mg/dL Phosphorus 1.6 L (2.5-4.5) mg/dL Total Bilirubin 14.8 H (0.2-1.3) mg/dL AST 53 H (14-36) U/L Alkaline Phosphatase 233 H (38-126) U/L Ammonia (<30) umol/L Albumin 2.4 L (3.5-5.0) g/dL Microbiology - Last 24 Hours (Table) 11/02/16 11:47 Gram Stain - Preliminary Peritoneal Fluid Body Fluid Culture - Preliminary 11/02/16 11:47 Anaerobic Culture - Preliminary Peritoneal Fluid Assessment and Plan Plan: 1. Acute alcohol hepatitis: GI service following. Bilirubin level remains at 14.8. Continue to monitor. GI following will await their further recommendations 2. Abdominal ascites secondary to alcohol liver cirrhosis. Set status post paracentesis with 7 L removed. 3. Anemia and pancytopenia likely related to chronic liver disease as well as episode of acute blood loss anemia due to 1 episode of coffee-ground emesis: GI service following. Patient did receive 1 unit of blood. 4. Elevated ammonia level: GI service started patient on lactulose 5. Alcohol cirrhosis and portal hypertension 6. Hypervolemic hyponatremia: Secondary to liver cirrhosis. Followed by nephrology 7. Hypokalemia, hypomagnesemia and hypophosphatemia secondary to poor oral intake. Patient receiving supplements 8. Metabolic acidosis secondary to acute kidney injury patient started on sodium bicarb per nephrology 9. Hypotension currently on vasopressors. Nephrology added Midodrin 10. Alcohol intoxication: Start multivitamin and folic acid and thiamine 11. Hypothyroidism: Patient stopped taking her Synthroid. Check TSH and free T4 Patient's overall condition is very poor and guarded and she may require transfer to tertiary care center. Continue to monitor closely
[2016-11-03] MEDS ORDERED: FOLIC ACID 1 MG TAB PO SCH (12:00)
[2016-11-03] MEDS ORDERED: MULTIVITAMINS, THERA 1 EACH TAB PO SCH (12:00)
[2016-11-03] MEDS ORDERED: THIAMINE 100 MG TAB PO SCH (12:00)
[2016-11-03 12:17] LABS: Glucose,Whole Blood 122 mg/dL (75-99)
[2016-11-03] MEDS ORDERED: MIDODRINE 5 MG TAB PO SCH (12:30)
--- NOTE | 2016-11-03 13:07 | CDI ---
In responding to this query, please exercise your independent professional judgment. The [facility] Coding Staff and Clinical Documentation Specialists appreciate your assistance in clarifying documentation, maintaining compliance with coding guidelines, accurately documenting patients condition and capturing severity of illness. The fact that a question is asked does not imply that any particular answer is desired or expected. Communication forms are a method of clarifying documentation and are not made part of the Legal Health Record. Thank you in advance for your clarification. Last Revision, September 2015 Payal Keene [address] [place] [place] [address] Documentation Clarification Form Date: 11/03/2016 12:56:00 PM From: Pema Lopez RN, CCDS Admit Date: 11/01/2016 12:36:00 PM Patient Name: Millicent Avila Visit Number: [id number] Dr. Mat Díaz/Davida DUMONT Patient history/risk factors: Paracentesis with 7L off, Hepatic Cirrhosis, KUSUM with Hepatorenal syndrome Clinical Indicators: 11/03 Attending Progress Note: "Hypotension currently on vasopressors." 11/03 Pulmonary Progress Note: "Had some mental status changes and also some hypotension." 11/03 Nephrology Consult: "Nonoliguric acute kidney injury mostly prerenal in nature secondary to hypotension and large volume paracentesis. Hypotension maintained on vasopressors." 11/02 H&P:"#1 liver cirrhosis with large ascites and chronic liver failure #2 hypotension requiring multiple fluid boluses." Vitals: temp97.8, hr 90, RR 18, B/P 91/50, spo2 100% 2l NC Treatment: 1L IVF Bolus Levophed Gtt titrate for B/P In your professional opinion, can you please specify the reason for hypotension if known? Hypovolemic Shock o Cause Septic Shock o Suspected or known causative organism o Any associated organ failure Cardiogenic Shock o Cause Other, please specify Unable to determine Please document in your progress notes and discharge summary in order to capture severity of illness and risk of mortality. Include clinical findings that support your diagnosis. FYI: Press F11 to launch patient chart. Place X here if this finding has no clinical significance, is not applicable or if you are not able to provide any additional documentation. EVON
--- NOTE | 2016-11-03 16:04 | P.DS ---
Providers Date of admission: 11/01/16 12:36 Expected date of discharge: 11/03/16 Attending physician: Mat Díaz Consults: 11/01/16 13:20 Consult Physician Urgent Consulting Provider: Marciano Mcleod Consult Reason/Comments: Critical care management Do you want consulting provider notified?: Yes 11/02/16 15:04 Consult Physician Urgent Consulting Provider: Ha Merrill Consult Reason/Comments: hepatorenal syndrome Do you want consulting provider notified?: Already Contacted Dr. Earl [facility] Course: Discharge diagnoses 1. Acute alcohol hepatitis: Hyperbilirubinemia. GI service following. Bilirubin level remains at 14.8. Continue to monitor. GI following will await their further recommendations 2. Abdominal ascites secondary to alcohol liver cirrhosis. status post paracentesis with 7 L removed. 3. Anemia and thrombocytopenia likely related to chronic liver disease as well as episode of acute blood loss anemia due to 1 episode of coffee-ground emesis: GI service following. Patient did receive 1 unit of blood. 4. Elevated ammonia level: GI service started patient on lactulose 5. Alcohol cirrhosis and portal hypertension 6. Hypovolemic hyponatremia: Secondary to liver cirrhosis. Followed by nephrology 7. Hypokalemia, hypomagnesemia and hypophosphatemia secondary to poor oral intake. Patient receiving supplements 8. Metabolic acidosis secondary to acute kidney injury patient started on sodium bicarb per nephrology 9. Hypotension currently on vasopressors. Nephrology added Midodrin 10. Alcohol intoxication: Start multivitamin and folic acid and thiamine 11. Hypothyroidism: Patient stopped taking her Synthroid. TSH level at 85.800 and free T4 low at 0.27. Resume her Synthroid 12. Hypovolemic shock with hypotension. Requiring vasopressors. 13. Hepatic encephalopathy 14. liver failure 15. UTI: On Rocephin 16. Acute kidney injury mostly prerenal secondary to hypotension and large- volume paracentesis 17. Possible hepatorenal syndrome Hospital course this is a 56-year-old female who presented with generalized weakness jaundice and abdominal distention. She also had mental status changes. She has a known history of alcohol liver cirrhosis. She is still actively drinking alcohol. She was found to be hypotensive. She was admitted to the ICU. Started on Levophed. Also had acute kidney injury likely secondary to her hypotension. She underwent paracentesis with 7 L removed yesterday. GI service and nephrology are following. She also is followed by critical care physician. Patient had improvement in her abdominal distention. She is still on Levophed titrating down she's at 15 mics. Patient's total bilirubin remains at 14.8 there is concerns about liver failure and hepatorenal syndrome. Patient's overall condition is very poor and guarded. She needs a higher level of care. Critical care physician and GI services recommending transfer to a tertiary care center. Patient will be transferred to [facility]. Awaiting for acceptance for [facility]. Patient is stable for transfer. Please refer to chart for any further details. Patient Condition at Discharge: Stable Plan - Discharge Summary Discharge Medication List Folic Acid 1 mg PO DAILY 08/06/14 [History] Thiamine HCl [Vitamin B-1] 100 mg PO DAILY 08/06/14 [History] Potassium Chloride [Klor-Con 10] 10 meq PO DAILY 07/03/15 [History] Levothyroxine Sodium [Synthroid] 88 mcg PO DAILY #30 tab 07/06/15 [Rx] Cholecalciferol [Vitamin D3] 4,000 unit PO DAILY 08/08/16 [History] Citalopram Hydrobromide [CeleXA] 40 mg PO DAILY 08/08/16 [History] Lactulose [Cephulac] 20 gm PO DAILY ml 11/03/16 [Rx] Midodrine [ProAmatine] 10 mg PO AC-TID tab 11/03/16 [Rx] Nicotine 14Mg/24Hr Patch [Habitrol] 1 patch TRANSDERM DAILY patch 11/03/16 [Rx] Sodium Bicarbonate Tab 650 mg PO BID tab 11/03/16 [Rx] cefTRIAXone [Rocephin] 1,000 mg IVPB Q24H vial 11/03/16 [Rx] Follow up Appointment(s)/Referral(s): aDmaris Live MD [Primary Care Provider] - 1 Week Activity/Diet/Wound Care/Special Instructions: Ok to transfer to [facility] Discharge Disposition: OTHER INSTITUTION NOT DEFINED
[2016-11-03 16:16] VITALS: BP 90/58; PULSE 90; RESP 16; TEMP 98.3
--- NOTE | 2016-11-03 22:45 | PCN ---
DATE OF PROCEDURE: LEFT INTERNAL JUGULAR TRIPLE-LUMEN CATHETER PLACEMENT PREOPERATIVE DIAGNOSIS: Administration of fluids and pressors. POSTOPERATIVE DIAGNOSIS: Administration of fluids and pressors. INDICATION: Hemodynamic monitoring/Intravenous access. A time-out was completed verifying correct patient, procedure, site, positioning, and implant(s) or special equipment if applicable. The patient was placed in a dependent position appropriate for triple-lumen catheter placement based on the vein to be cannulated. The patient's left neck was prepped and draped in sterile fashion. Lidocaine 1% was used to anesthetize the surrounding skin area. A triple-lumen 9F Cordis catheter was introduced into the internal jugular vein using Seldinger technique. The catheter was threaded smoothly over the guidewire and appropriate blood return was obtained. Each lumen of the catheter was evacuated of air and flushed with sterile saline. The catheter was then sutured in place to the skin and a sterile dressing applied. Perfusion to the extremity distal to the point of catheter insertion was checked and found to be adequate. There was no immediate complication. There was good blood return from all 3 ports. A chest x-ray was ordered to check placement. The catheter was sutured in place. Sterile dressing was applied by the nurse.
--- NOTE | 2016-11-04 07:56 | PCN ---
DATE OF PROCEDURE: 11/03/2016 PROCEDURE: Arterial line insertion. ARTERIAL LINE PLACEMENT Indication: Hemodynamic monitoring. A time-out was completed verifying correct patient, procedure, site, positioning, and implant(s) or special equipment if applicable. Tip's test was performed to ensure adequate perfusion. The patient's right/left wrist or right/left groin was prepped and draped in sterile fashion. 1% Lidocaine was used to anesthetize the area. An 18G Arrow arterial line was introduced into the radial/femoral artery. The catheter was threaded over the guide wire and the needle was removed with appropriate pulsatile blood return. Blood loss was minimal. The catheter was then sutured in place to the skin and a sterile dressing applied. Perfusion to the extremity distal to the point of catheter insertion was checked and found to be adequate. The patient tolerated the procedure well and there were no complications. This was a left radial arterial line insertion and no immediate complications. EVON
== END 2016-11-03 18:42 | disposition short-term general hospital (02) | DRG 432 ==
LOC: EC 10:00 → 6ICU 12:36
PROVIDERS: ADMIT Internal Medicine; ATTEND Internal Medicine
PROC: 0W9G3ZZ Drainage of Peritoneal Cavity, Percutaneous Approach (ICD-10-PCS; 2016-11-02)
PROC: 05HM33Z Insertion of Infusion Device into Right Internal Jugular Vein, Percutaneous Approach (ICD-10-PCS; principal; 2016-11-03)
PROC: 4A133B1 Monitoring of Arterial Pressure, Peripheral, Percutaneous Approach (ICD-10-PCS; principal; 2016-11-03)
PROC: 03HY32Z Insertion of Monitoring Device into Upper Artery, Percutaneous Approach (ICD-10-PCS; principal; 2016-11-03)
PROC: 4A133J1 Monitoring of Arterial Pulse, Peripheral, Percutaneous Approach (ICD-10-PCS; principal; 2016-11-03)
DX: K70.31 Alcoholic cirrhosis of liver with ascites (principal); R57.1 Hypovolemic shock; K76.7 Hepatorenal syndrome; E87.4 Mixed disorder of acid-base balance; N17.9 Acute kidney failure, unspecified; D68.9 Coagulation defect, unspecified; K76.6 Portal hypertension; E87.1 Hypo-osmolality and hyponatremia; D62 Acute posthemorrhagic anemia; N39.0 Urinary tract infection, site not specified; I11.0 Hypertensive heart disease with heart failure; I50.9 Heart failure, unspecified; D69.59 Other secondary thrombocytopenia; E83.42 Hypomagnesemia; E83.39 Other disorders of phosphorus metabolism; E03.9 Hypothyroidism, unspecified; E87.6 Hypokalemia; F10.229 Alcohol dependence with intoxication, unspecified; F17.200 Nicotine dependence, unspecified, uncomplicated; F32.9 Major depressive disorder, single episode, unspecified; F41.0 Panic disorder [episodic paroxysmal anxiety]; K72.10 Chronic hepatic failure without coma; Z79.899 Other long term (current) drug therapy; Z91.040 Latex allergy status
CPT/HCPCS: 36415; 36430; 49083; 71020; 76705; 76770; 80048; 80053; 80320; 81001; 82140; 82272; 82550; 82553; 83735; 84100; 84132; 84439; 84443; 84484; 85025; 85027; 85610; 85730; 86850; 86900; 86901; 86920; 87070; 87075; 87205; 93005; 96365; 96366; 96368; 99291